=== PATIENT | female | born 1935 | race Caucasian/White ===

== ENCOUNTER 2019-07-06 18:14 | Inpatient (IN) | payer OTHER ==
[~2019-07-06] VITALS: Ht 165.1 cm; Wt 68.3 kg
[~2019-07-06 18:14] MED LIST: ASPI81EC PO; ATEN25; ATEN25 PO; CAPT25; CAPT50 PO; CONEST.625; DIPATR; DIPATR PO; FISH1000 PO; GEMF600 PO; GLUCHON PO; HYDCHL12.5; HYDCHL12.5 PO; LOVA40 PO; OMEGA 3 PO; OMEP20ER PO; ONDA4 PO; OSTEO BIFLEX; RXONDA4ODT MM; VITB100 PO
[2019-07-06 18:45] LABS: BASOPHILS ABSOLUTE AUTO 0.03 K/mm3 (0.00-0.23); BASOPHILS PERCENT AUTO 0 % (0-2); EOSINOPHILS ABSOLUTE AUTO 0.05 K/mm3 (0.00-0.68); EOSINOPHILS PERCENT AUTO 1 % (0-6); Hematocrit 35.8 % (33.0-51.0); Hemoglobin 12.8 g/dL (11.5-16.0); IMMATURE GRAN ABSOLUTE AUTO 0.05 K/mm3 (0.00-0.10); IMMATURE GRAN PERCENT AUTO 1 % (0-1); LYMPHOCYTES ABSOLUTE AUTO 2.33 K/mm3 (0.84-5.20); LYMPHOCYTES PERCENT AUTO 31 % (21-46); MONOCYTES ABSOLUTE AUTO 0.45 K/mm3 (0.16-1.47); MONOCYTES PERCENT AUTO 6 % (4-13); Mean Corpuscular HGB 32.9 pg (26.0-34.0); Mean Corpuscular HGB Conc 35.8 g/dL (31.5-36.5); Mean Corpuscular Volume 92 fL (80-100); Mean Platelet Volume 8.8 fL (9.1-12.4); NEUTROPHILS ABSOLUTE AUTO 4.53 K/mm3 (1.96-9.15); NEUTROPHILS PERCENT AUTO 61 % (41-73); Platelet Count 281 K/mm3 (150-400); RDW Coefficient Variation 11.9 % (11.7-14.2); RDW Standard Deviation 40.4 fL (35.1-46.3); Red Blood Cell Count 3.89 M/mm3 (3.80-5.20); White Blood Cell Count 7.44 K/mm3 (4.00-11.30)
[2019-07-06 19:04] LABS: Alanine Aminotransfer (ALT/SGP 19 U/L (12-78); Albumin, Blood 3.8 g/dL (3.4-5.0); Albumin/Globulin Ratio 1.2 (0.8-1.8); Alk Phos 59 U/L (50-136); Anion Gap 10 mmol/L (6-16); Aspartate Aminotrans (AST/SGOT 17 U/L (12-37); Bilirubin, Total 0.6 mg/dL (0.1-1.0); Blood Urea Nitrogen 15 mg/dL (8-24); Bun/Creatinine Ratio 15.1 (12.0-20.0); CO2, Blood 21 mmol/L (21-32); Calcium, Blood 8.8 mg/dL (8.5-10.1); Chloride, Blood 90 mmol/L (98-108); Creatinine, Blood 0.99 mg/dL (0.40-1.00); Globulin, Blood 3.3 g/dL (2.2-4.0); Glomerular Filtration Rate 57 (60-); Glucose, Blood 111 mg/dL (70-99); Potassium, Blood 3.5 mmol/L (3.5-5.5); Sodium, Blood 121 mmol/L (136-145); Total Protein, Blood 7.1 g/dL (6.4-8.2); Troponin I <0.015 ng/mL (0.000-0.040)
[2019-07-06] MEDS ORDERED: ATEN25 PO (19:58)
[2019-07-06] MEDS ORDERED: IRBE75 PO (19:59)
[2019-07-06] MEDS ORDERED: Aspir 8181 MG PO (19:59)
[2019-07-06] MEDS ORDERED: VITAMIN D31000 UNI1 PO (19:59)
[2019-07-06] MEDS ORDERED: FURO20 PO (19:59)
[2019-07-06] MEDS ORDERED: LOVA40 PO (19:59)
--- NOTE | 2019-07-06 22:22 | NUR ---
ADMISSION NOTE PT ARRIVED TO UNIT VIA STRETCHER, AMBULATES SBA TO BED. PT ACTIVELY VOMITING, LIQUID LIGHT BROWN. PT STATES HAD CHICKEN BROTH EARLIER. ADMINISTERED PRN ZOFRAN. ADMINSITERED 25 MCG FENTANYL FOR NECK PAIN. A&OX4. CURRENTLY RESTING AT THIS TIME, NO VOMITING OF CURRENT. RESP PANEL SENT. GI PANEL PENDING. PLACED IN CONTACT PRECAUTIONS GI SYMPTOMS PRESENT AND PT REPORTS RECENT EXPOSURE TO "FLU-LIKE SYMPTOMS" WITH FAMILY. ASSUMING CARE OF PT.
[2019-07-06 23:10] LABS: Source, Urine Clean Catch
[2019-07-06 23:13] LABS: Bilirubin, Urine Neg (Neg); Blood, Urine Neg (Neg); Glucose Qualitative, Urine Neg (Neg); Ketones, Urine 1+ (Neg); Leukocyte Esterase, Urine 1+ (Neg); Nitrite, Urine Neg (Neg); Protein, Urine Neg (Neg); Specific Gravity, Urine 1.015 (1.003-1.022); Urobilinogen, Urine NORM (Normal)
[2019-07-06 23:18] LABS: Appearance, Urine Clear (Clear); Color, Urine Yellow (P-Yellow)
[2019-07-06 23:19] LABS: Bacteria Rare /hpf; Red Blood Cells, Urine Not Seen /hpf (0-2); Squamous Epithelial Cells Few /hpf (Few)
[2019-07-07 00:35] LABS: Adenovirus Not Detected (NOT DETECT); Bordetella pertussis Not Detected (NOT DETECT); Chlamydophila pneumoniae Not Detected (NOT DETECT); Coronavirus 229E Not Detected (NOT DETECT); Coronavirus HKU1 Not Detected (NOT DETECT); Coronavirus NL63 Not Detected (NOT DETECT); Coronavirus OC43 Not Detected (NOT DETECT); Human Metapneumovirus Not Detected (NOT DETECT); Human Rhinovirus/Enterovirus Not Detected (NOT DETECT); Influenza A Not Detected (NOT DETECT); Influenza A/2009-H1 Not Detected (NOT DETECT); Influenza A/H1 Not Detected (NOT DETECT); Influenza A/H3 Not Detected (NOT DETECT); Influenza B Not Detected (NOT DETECT); Mycoplasma pneumoniae Not Detected (NOT DETECT); Parainfluenza Virus 1 Not Detected (NOT DETECT); Parainfluenza Virus 2 Not Detected (NOT DETECT); Parainfluenza Virus 3 Not Detected (NOT DETECT); Parainfluenza Virus 4 Not Detected (NOT DETECT); Respiratory Syncytial Virus Not Detected (NOT DETECT)
[2019-07-07 02:40] LABS: Hematocrit 33.8 % (33.0-51.0); Mean Corpuscular HGB Conc 35.5 g/dL (31.5-36.5); Mean Corpuscular Volume 93 fL (80-100); Mean Platelet Volume 9.5 fL (9.1-12.4); Platelet Count 177 K/mm3 (150-400); RDW Standard Deviation 41.2 fL (35.1-46.3); Red Blood Cell Count 3.64 M/mm3 (3.80-5.20); White Blood Cell Count 5.95 K/mm3 (4.00-11.30)
[2019-07-07 02:56] LABS: Anion Gap 11 mmol/L (6-16); Blood Urea Nitrogen 12 mg/dL (8-24); Bun/Creatinine Ratio 14.9 (12.0-20.0); CO2, Blood 23 mmol/L (21-32); Calcium, Blood 8.3 mg/dL (8.5-10.1); Chloride, Blood 92 mmol/L (98-108); Creatinine, Blood 0.81 mg/dL (0.40-1.00); Glomerular Filtration Rate >60 (60-); Glucose, Blood 96 mg/dL (70-99); Potassium, Blood 3.2 mmol/L (3.5-5.5); Sodium, Blood 126 mmol/L (136-145)
--- NOTE | 2019-07-07 06:02 | NUR ---
SHIFT SUMMARY PT HAS HAD THREE EPISODES OF EMESIS, CLEAR LIQUID BROWN EACH TIME. RESOLVED BY IV ZOFRAN. PT C/O SIGNIFICANT R SHOULDER PAIN, ATTEMPTED TO RESOLVE PAIN WITH HOT/COLD APPLICATION; NO RELIEF. ADMINSITERED IV FENTANYL TWICE AND PT REPORTS PAIN IS WELL CONTROLLED AT THIS TIME. UNKNOWN CAUSE OF R SHOULDER PAIN, PT DENIES RECENT FALLS OR INJURY. REPORTS PAIN STARTED ROUGHLY 1 WEEK AGO WHEN N/V/D STARTED. PT HAS NOT HAD A BM SINCE ARRIVAL; GI PANEL PENDING; IN CONTACT ISO UNTIL RESULTS ARE KNOWN. RESP PANEL COLLECTED & NEG. URINALYSIS BEING CULTURED. NS RUNNING @ 75 ML/HR X 1.5 BAGS. WILL CONT TO MONITOR AND PROVIDE CARE UNTIL PRESUMED BY ONCOMING RN.
[2019-07-07 10:54] LABS: Alanine Aminotransfer (ALT/SGP 21 U/L (12-78); Albumin, Blood 3.5 g/dL (3.4-5.0); Albumin/Globulin Ratio 1.2 (0.8-1.8); Alk Phos 57 U/L (50-136); Anion Gap 6 mmol/L (6-16); Aspartate Aminotrans (AST/SGOT 18 U/L (12-37); Bilirubin, Total 0.6 mg/dL (0.1-1.0); Blood Urea Nitrogen 9 mg/dL (8-24); Bun/Creatinine Ratio 13.9 (12.0-20.0); CO2, Blood 27 mmol/L (21-32); Calcium, Blood 8.6 mg/dL (8.5-10.1); Chloride, Blood 94 mmol/L (98-108); Creatinine, Blood 0.65 mg/dL (0.40-1.00); Glomerular Filtration Rate >60 (60-); Glucose, Blood 94 mg/dL (70-99); Potassium, Blood 3.6 mmol/L (3.5-5.5); Sodium, Blood 127 mmol/L (136-145); Total Protein, Blood 6.5 g/dL (6.4-8.2)
--- NOTE | 2019-07-07 16:45 | NUR ---
SHIFT SUMMARY PT HAS HAD NAUSEA AND VOMITING THROUGH OUT THE SHIFT MEDICATED X2 FOR NAUSEA, ONE EMESIS OF 200 THIS SHIFT. PT MEDICATED WITH IV PAIN MEDICATION X2 THIS SHIFT. PT IS NPO AT THIS TIME. BED ALARM ON AND INSTRUCTED PT TO CALL AFTER PAIN MEDS GIVEN IF GETTING OUT OF BED. I WILL COUNTINUE TO MONITOR THIS SHIFT AND REPORT TO NOC RN. CALL LIGHT WITH IN REACH.
[2019-07-07 21:13] LABS: Anion Gap 8 mmol/L (6-16); Blood Urea Nitrogen 7 mg/dL (8-24); CO2, Blood 23 mmol/L (21-32); Calcium, Blood 8.8 mg/dL (8.5-10.1); Chloride, Blood 99 mmol/L (98-108); Glomerular Filtration Rate >60 (60-); Glucose, Blood 95 mg/dL (70-99); Potassium, Blood 3.8 mmol/L (3.5-5.5); Sodium, Blood 130 mmol/L (136-145)
--- NOTE | 2019-07-08 18:02 | NUR ---
PT. SITTING ON SIDE OF BED EATING DINNER. PT. HAS NOT HAD ANY NAUSEA, VOMITING, OR DIARRHEA THIS SHIFT. PT. STARTED ON FULL LIQUIDS FOR LUNCH AND ADVANCED TO SOFT FOR DINNER. TOLERATED WELL WITHOUT REPORTING ANY N/V. PT. UP TO SHOWER TODAY. OXYBUTYNIN BROUGHT FROM HOME AND SENT TO PHARMACY FOR RELABELING.
--- NOTE | 2019-07-08 23:15 | NUR ---
PT C/O OF SHOULDER AND NECK PAIN PERSISTING AFTER TYLENOL RECIEVED PRN. MADE AWARE AT 2215 W/FENT 25 MCG IV X1 AND ROXICODONE Q6H PRN RX'D. PT WAS ASLEEP W/X2 ATTEMPTS TO PROVIDE PRN MEDS. WILL ADMINISTER IF PT AWAKES AND REQUESTS FURTHER MEDS.
--- NOTE | 2019-07-09 01:59 | NUR ---
FENTANYL 25MCG IV X1 AND COMPAZINE FOR NAUSEA PROPHYLAXIS WERE RECIEVED PRN PER PT REQUEST FOR POSITIVE RELIEF OF NECK/SHOULDER PAIN. PT NOW ASLEEP.
[2019-07-09 05:21] LABS: Anion Gap 8 mmol/L (6-16); Blood Urea Nitrogen 9 mg/dL (8-24); Bun/Creatinine Ratio 13.2 (12.0-20.0); CO2, Blood 23 mmol/L (21-32); Calcium, Blood 8.8 mg/dL (8.5-10.1); Chloride, Blood 104 mmol/L (98-108); Creatinine, Blood 0.68 mg/dL (0.40-1.00); Glomerular Filtration Rate >60 (60-); Glucose, Blood 92 mg/dL (70-99); Potassium, Blood 3.7 mmol/L (3.5-5.5); Sodium, Blood 135 mmol/L (136-145)
--- NOTE | 2019-07-09 05:54 | NUR ---
SUMMARY: A/OX4, INDEPENDENT IN ROOM AND SPECIFIES NEEDS. SHE'S AWARE OF LIMITATIONS AND CALLS FOR ASSIST PRN. NECK/SHOULDER PAIN WAS UNRELIEVED BY TYLENOL SO FENTANYL 25MCG IV X1 AND PROPHYLACT IV COMPAZINE PRN WERE GIVEN FOR GOOD EFFECT. ROXICODONE PRN WAS ALSO RX'D BY BUT WAS NOT REQUIRED THIS SHIFT. SHE'S TOLERATING DIET/LIQ'S W/O C/O N/V. PT HAS SLEPT MOST OF NOCTE. NO ACUTE CHANGES, VSS/AFEBRILE. LIKELY D/C THIS AM. WCTM AND REPORT TO DAY RN.
[2019-07-09] MEDS ORDERED: ACET325 PO (11:24)
[2019-07-09] MEDS ORDERED: TRAM50 PO (11:25)
[2019-07-09] MEDS ORDERED: OXYB5 PO (11:25)
--- NOTE | 2019-07-09 12:30 | NUR ---
PT. GIVEN DISCHARGE INSTRUCTIONS AND DISCHARGED HOME WITH FAMILY, HOME MEDS RETURNED TO PATIENT.
== END 2019-07-09 12:30 | disposition home or self-care (01) | DRG 392 ==
LOC: ER 18:14 → MEDS 20:14
PROVIDERS: Internal Medicine; Physician Assistant; ADMIT Internal Medicine
DX: K52.9 Noninfective gastroenteritis and colitis, unspecified (principal); E87.1 Hypo-osmolality and hyponatremia; E86.0 Dehydration; I10 Essential (primary) hypertension; K21.9 Gastro-esophageal reflux disease without esophagitis; E78.5 Hyperlipidemia, unspecified; M54.2 Cervicalgia; M19.90 Unspecified osteoarthritis, unspecified site; R11.10 Vomiting, unspecified; Z79.82 Long term (current) use of aspirin; Z79.899 Other long term (current) drug therapy; Z87.891 Personal history of nicotine dependence
CPT/HCPCS: 0099U; 36415; 80048; 80053; 81001; 83690; 84484; 85025; 85027; 87086; 93005; 93010; 96361; 96374; 99285-25; A9270; C9113; J0780; J1650; J2405; J3010; J3480; J7030

== ENCOUNTER 2019-09-09 10:54 | Day surgery (SDC) | payer OTHER ==
[~2019-09-09] VITALS: Ht 165.1 cm; Wt 69.5 kg
[~2019-09-09 10:54] MED LIST changes: +ACET325 PO; +Aspir 8181 MG PO; +FURO20 PO; +IRBE75 PO; +OXYB5 PO; +TRAM50 PO; +VITAMIN D31000 UNI1 PO
--- NOTE | 2019-09-09 14:30 | NUR ---
09/09/19 1430 Claribel Mobley LATE ENTRY----DUE TO ABNORMAL 3LEAD DR VILLARREAL WAS CONSULTED. SHE SPOKE WITH DR MILES AND IT WAS DECIDED TO PROCEED CAUTIOUSLY WITH COLONOSCOPY AND RESCHEDULE EGD FOR ANOTHER TIME DUE TO HEART IRREGULARITY. PATIENT AND FAMILY ALL AWARE AND QUESTIONS ANSWERED AND IN AGREEMENT.
--- NOTE | 2019-09-09 14:36 | NUR ---
09/09/19 1436 Claribel Mobley LATE ENTRY---DISCHARGE INSTRUCTIONS DISCUSSED WITH PATIENT AND DAUGHTER IN LAW. ALL QUESTIONS ANSWERED. I DID INSTRUCT THEM BOTH THAT IF PATIENT HAD ANY PROBLEMS WITH SOB, CHEST PAIN, FAINTING OR NEAR FAINTING THAT THEY SHOULD CALL 911. I ADVISED PATIENT AND FAMILY THAT I WAS GOING TO BE SENDING COPIES OF ALL THE NOTES REGARDING HER HEART ISSUES TODAY TO HER PCP AND SHE SHOULD SCHEDULE APPOINTMENT TO FOLLOW UP [place]. PATIENT AND DAUGHTER IN LAW BOTH VERBALIZED UNDERSTANDING
== END 2019-09-09 13:55 | disposition home or self-care (01) ==
LOC: ORSCSDS 10:54
PROVIDERS: Internal Medicine Gastroenterology
PROC: 0DBE8ZX Excision of Large Intestine, Via Natural or Artificial Opening Endoscopic, Diagnostic (ICD-10-PCS; principal; 2019-09-09 12:30)
PROC: 0DBK8ZX Excision of Ascending Colon, Via Natural or Artificial Opening Endoscopic, Diagnostic (ICD-10-PCS; principal; 2019-09-09 12:30)
PROC: 0DBH8ZX Excision of Cecum, Via Natural or Artificial Opening Endoscopic, Diagnostic (ICD-10-PCS; principal; 2019-09-09 12:30)
PROC: 0DBL8ZX Excision of Transverse Colon, Via Natural or Artificial Opening Endoscopic, Diagnostic (ICD-10-PCS; principal; 2019-09-09 12:30)
PROC: 0DBM8ZX Excision of Descending Colon, Via Natural or Artificial Opening Endoscopic, Diagnostic (ICD-10-PCS; principal; 2019-09-09 12:30)
DX: Z12.11 Encounter for screening for malignant neoplasm of colon (principal); Z86.010 Personal history of colon polyps; K57.30 Diverticulosis of large intestine without perforation or abscess without bleeding; R11.0 Nausea; Z80.0 Family history of malignant neoplasm of digestive organs; D12.4 Benign neoplasm of descending colon; D12.2 Benign neoplasm of ascending colon; D12.0 Benign neoplasm of cecum; D12.3 Benign neoplasm of transverse colon; I10 Essential (primary) hypertension; R93.89 Abnormal findings on diagnostic imaging of other specified body structures; Z79.82 Long term (current) use of aspirin; Z79.899 Other long term (current) drug therapy
CPT/HCPCS: 88305; J0461; J2250; J2704; J7120

== ENCOUNTER 2019-12-03 17:53 | Emergency (ER) | payer MEDICARE ==
[~2019-12-03] VITALS: Ht 165.1 cm; Wt 70.3 kg
== END 2019-12-03 19:15 | disposition home or self-care (01) ==
LOC: ER 17:53
DX: S01.01XA Laceration without foreign body of scalp, initial encounter (principal); I10 Essential (primary) hypertension; E78.5 Hyperlipidemia, unspecified; K21.9 Gastro-esophageal reflux disease without esophagitis; Z79.899 Other long term (current) drug therapy; Z79.82 Long term (current) use of aspirin; Z87.891 Personal history of nicotine dependence; W10.9XXA Fall (on) (from) unspecified stairs and steps, initial encounter
CPT/HCPCS: 12002; 70450; 72125; 99283-25

== ENCOUNTER → 2020-02-13 | Outpatient (CLI) | payer MEDICARE, OTHER ==
[2020-02-13 14:03] LABS: Adenovirus F 40/41 Not Detected (NOT DETECT); Astrovirus Not Detected (NOT DETECT); Campylobacter Sp Not Detected (NOT DETECT); Cryptosporidium Not Detected (NOT DETECT); Cyclospora Cayetanensis Not Detected (NOT DETECT); E. Coli O157 Not Detected (NOT DETECT); Entamoeba Histolytica Not Detected (NOT DETECT); Enteroaggregative E. coli-EAEC Not Detected (NOT DETECT); Enteropathogenic E. coli-EPEC Not Detected (NOT DETECT); Enterotoxigenic E. coli-ETEC Not Detected (NOT DETECT); Giardia Lamblia Not Detected (NOT DETECT); Norovirus GI/GII Not Detected (NOT DETECT); Plesiomonas Shigelloides Not Detected (NOT DETECT); Rotavirus A Not Detected (NOT DETECT); Salmonella Sp Not Detected (NOT DETECT); Sapovirus Not Detected (NOT DETECT); Shiga Toxin-prod E. coli-STEC Not Detected (NOT DETECT); Shigella/Enteroin E. coli-EIEC Not Detected (NOT DETECT); Vibrio Cholerae Not Detected (NOT DETECT); Vibrio Sp Not Detected (NOT DETECT); Yersinia Enterocolitica Not Detected (NOT DETECT)
== END | disposition home or self-care (01) ==
LOC: LAB 07:30 → LAB SHORT 07:30 → LAB FUT 02-10 14:50
PROVIDERS: Internal Medicine Gastroenterology
DX: R19.7 Diarrhea, unspecified (principal)
CPT/HCPCS: 0097U

== ENCOUNTER → 2020-10-02 | Outpatient (CLI) | payer MEDICARE, OTHER ==
[2020-10-02 14:17] LABS: Calcium, Urine <5.0 mg/dL (< 17.5); Calcium, Urine Calculation Unable to Calculate mg/24hrs (42.0-353.0)
[2020-10-02 14:19] LABS: Creatinine Urine 39.4 mg/dL (27.00-270.00)
== END ==
LOC: LAB SHORT 06:00 → LAB 06:00 → EDSTATUS 09-30 10:05 → LAB FUT 09-30 10:05
PROVIDERS: Family Medicine
DX: R19.7 Diarrhea, unspecified (principal); E78.1 Pure hyperglyceridemia; Z88.8 Allergy status to other drugs, medicaments and biological substances
CPT/HCPCS: 81050; 82340; 82570

== ENCOUNTER → 2020-11-05 | Outpatient (CLI) | payer MEDICARE | END | disposition home or self-care (01) | LOC: LAB SHORT 09:49 → LAB 09:49 | DX: J02.9 Acute pharyngitis, unspecified (principal) | CPT/HCPCS: 87081 ==

== ENCOUNTER 2020-12-18 12:39 | Emergency (ER) | payer MEDICARE ==
[~2020-12-18] VITALS: Ht 165.1 cm; Wt 72.6 kg
[2020-12-18 13:26] LABS: BASOPHILS ABSOLUTE AUTO 0.06 K/mm3 (0.00-0.23); BASOPHILS PERCENT AUTO 1 % (0-2); EOSINOPHILS ABSOLUTE AUTO 0.14 K/mm3 (0.00-0.68); EOSINOPHILS PERCENT AUTO 2 % (0-6); Hematocrit 33.5 % (33.0-51.0); Hemoglobin 11.2 g/dL (11.5-16.0); IMMATURE GRAN ABSOLUTE AUTO 0.02 K/mm3 (0.00-0.10); IMMATURE GRAN PERCENT AUTO 0 % (0-1); LYMPHOCYTES ABSOLUTE AUTO 1.66 K/mm3 (0.84-5.20); LYMPHOCYTES PERCENT AUTO 26 % (21-46); MONOCYTES ABSOLUTE AUTO 0.33 K/mm3 (0.16-1.47); MONOCYTES PERCENT AUTO 5 % (4-13); Mean Corpuscular HGB 30.3 pg (26.0-34.0); Mean Corpuscular HGB Conc 33.4 g/dL (31.5-36.5); Mean Corpuscular Volume 91 fL (80-100); Mean Platelet Volume 9.1 fL (9.1-12.4); NEUTROPHILS ABSOLUTE AUTO 4.26 K/mm3 (1.96-9.15); NEUTROPHILS PERCENT AUTO 66 % (41-73); Platelet Count 259 K/mm3 (150-400); RDW Coefficient Variation 13.1 % (11.7-14.2); RDW Standard Deviation 43.1 fL (35.1-46.3); White Blood Cell Count 6.47 K/mm3 (4.00-11.30)
[2020-12-18 13:52] LABS: Alanine Aminotransfer (ALT/SGP 13 U/L (12-78); Albumin, Blood 3.6 g/dL (3.4-5.0); Alk Phos 51 U/L (50-136); Anion Gap 7 mmol/L (6-16); Aspartate Aminotrans (AST/SGOT 11 U/L (12-37); Bilirubin, Total 0.3 mg/dL (0.1-1.0); Blood Urea Nitrogen 17 mg/dL (8-24); Bun/Creatinine Ratio 19.7 (12.0-20.0); CO2, Blood 22 mmol/L (21-32); Calcium, Blood 8.2 mg/dL (8.5-10.1); Chloride, Blood 104 mmol/L (98-108); Creatinine, Blood 0.86 mg/dL (0.40-1.00); Globulin, Blood 3.5 g/dL (2.2-4.0); Glomerular Filtration Rate >60 (60-); Glucose, Blood 99 mg/dL (70-99); Potassium, Blood 4.5 mmol/L (3.5-5.5); Sodium, Blood 133 mmol/L (136-145); Total Protein, Blood 7.1 g/dL (6.4-8.2); Troponin I <0.015 ng/mL (0.000-0.040)
== END 2020-12-18 14:13 | disposition home or self-care (01) ==
LOC: ER 12:39
PROVIDERS: Physician Assistant
DX: R07.89 Other chest pain (principal); I10 Essential (primary) hypertension; K21.9 Gastro-esophageal reflux disease without esophagitis; E78.5 Hyperlipidemia, unspecified; Z88.8 Allergy status to other drugs, medicaments and biological substances; Z79.82 Long term (current) use of aspirin; Z79.899 Other long term (current) drug therapy
CPT/HCPCS: 36415; 71046; 80053; 84484; 85025; 93005; 93010; 99285-25

== ENCOUNTER → 2021-01-22 | Outpatient (CLI) | payer MEDICARE | LOC: LAB 17:57 → LAB SHORT 17:57 | DX: N39.0 Urinary tract infection, site not specified (principal) | CPT/HCPCS: 87077; 87086; 87186 ==

== ENCOUNTER 2021-02-02 22:15 | Emergency (ER) | payer MEDICARE ==
[~2021-02-02] VITALS: Ht 165.1 cm; Wt 72.1 kg
[2021-02-02 22:49] LABS: BASOPHILS ABSOLUTE AUTO 0.03 K/mm3 (0.00-0.23); BASOPHILS PERCENT AUTO 0 % (0-2); EOSINOPHILS ABSOLUTE AUTO 0.14 K/mm3 (0.00-0.68); EOSINOPHILS PERCENT AUTO 1 % (0-6); Hematocrit 37.8 % (33.0-51.0); Hemoglobin 12.1 g/dL (11.5-16.0); IMMATURE GRAN ABSOLUTE AUTO 0.07 K/mm3 (0.00-0.10); IMMATURE GRAN PERCENT AUTO 1 % (0-1); LYMPHOCYTES ABSOLUTE AUTO 1.68 K/mm3 (0.84-5.20); LYMPHOCYTES PERCENT AUTO 12 % (21-46); MONOCYTES ABSOLUTE AUTO 0.68 K/mm3 (0.16-1.47); MONOCYTES PERCENT AUTO 5 % (4-13); Mean Corpuscular HGB 29.4 pg (26.0-34.0); Mean Corpuscular Volume 92 fL (80-100); NEUTROPHILS ABSOLUTE AUTO 11.06 K/mm3 (1.96-9.15); NEUTROPHILS PERCENT AUTO 81 % (41-73); Platelet Count 286 K/mm3 (150-400); RDW Coefficient Variation 14.6 % (11.7-14.2); RDW Standard Deviation 48.8 fL (35.1-46.3); Red Blood Cell Count 4.12 M/mm3 (3.80-5.20); White Blood Cell Count 13.66 K/mm3 (4.00-11.30)
[2021-02-02 23:08] LABS: Albumin, Blood 3.5 g/dL (3.4-5.0); Albumin/Globulin Ratio 1.1 (0.8-1.8); Bilirubin, Total 0.4 mg/dL (0.1-1.0); Bun/Creatinine Ratio 21.8 (12.0-20.0); Calcium, Blood 8.2 mg/dL (8.5-10.1); Creatinine, Blood 1.01 mg/dL (0.40-1.00); Globulin, Blood 3.3 g/dL (2.2-4.0); Potassium, Blood 3.8 mmol/L (3.5-5.5); Total Protein, Blood 6.8 g/dL (6.4-8.2)
[2021-02-03 01:40] LABS: Source, Urine Voided
[2021-02-03 01:42] LABS: Appearance, Urine Clear (Clear); Bilirubin, Urine Neg (Neg); Blood, Urine Neg (Neg); Color, Urine Yellow (P-Yellow); Glucose Qualitative, Urine Neg (Neg); Ketones, Urine Neg (Neg); Leukocyte Esterase, Urine 2+ (Neg); Nitrite, Urine Neg (Neg); Protein, Urine 1+ (Neg); Urobilinogen, Urine NORM (Normal)
[2021-02-03 01:53] LABS: Red Blood Cells, Urine 0-2 /hpf (0-2)
[2021-02-03 01:54] LABS: Bacteria Mod /hpf; Hyaline Casts 0-2 /lpf (0-2); Squamous Epithelial Cells Few /hpf (Few)
[2021-02-03 02:32] LABS: Troponin I <0.015 ng/mL (0.000-0.040)
== END 2021-02-03 06:27 | disposition home or self-care (01) ==
LOC: ER 22:15
PROVIDERS: Emergency Medicine
DX: R10.13 Epigastric pain (principal); I10 Essential (primary) hypertension; Z88.8 Allergy status to other drugs, medicaments and biological substances; Z79.899 Other long term (current) drug therapy; Z79.82 Long term (current) use of aspirin; Z87.891 Personal history of nicotine dependence
CPT/HCPCS: 36415; 80053; 81001; 83690; 84484; 85025; 87086; 93005; 93010; 96374; 99284-25; A9270

== ENCOUNTER → 2021-05-18 | Outpatient (CLI) | payer MEDICARE | END | disposition home or self-care (01) | LOC: LAB 13:30 → LAB SHORT 13:30 | DX: R30.9 Painful micturition, unspecified (principal) | CPT/HCPCS: 87077; 87086; 87186 ==

== ENCOUNTER 2021-07-14 11:31 | Day surgery (SDC) | payer MEDICARE ==
[~2021-07-14] VITALS: Ht 165.1 cm; Wt 72.8 kg
[~2021-07-14 11:31] MED LIST changes: +BENZ100A PO; +Flonase 0.05% N16 GM; +Flovent 44 mc10.6 GM INH; +MAGNESIUM OXID500 MG PO
== END 2021-07-14 14:25 | disposition home or self-care (01) ==
LOC: ORSCSDS 11:31
PROVIDERS: Internal Medicine Gastroenterology
PROC: 0DB68ZX Excision of Stomach, Via Natural or Artificial Opening Endoscopic, Diagnostic (ICD-10-PCS; principal; 2021-07-14 13:30)
DX: R10.11 Right upper quadrant pain (principal); R10.9 Unspecified abdominal pain; K29.70 Gastritis, unspecified, without bleeding; I10 Essential (primary) hypertension; K21.9 Gastro-esophageal reflux disease without esophagitis; Z79.899 Other long term (current) drug therapy
CPT/HCPCS: 88305; 88341; 88342; J2704; J7120

== ENCOUNTER → 2021-07-15 | Outpatient (CLI) | payer MEDICARE | END | disposition home or self-care (01) | LOC: LAB SHORT 10:00 → LAB 10:00 | DX: R30.9 Painful micturition, unspecified (principal) | CPT/HCPCS: 87077; 87086; 87186 ==

== ENCOUNTER → 2021-08-19 | Outpatient (CLI) | payer MEDICARE | END | disposition home or self-care (01) | LOC: LAB SHORT 17:55 | DX: R30.9 Painful micturition, unspecified (principal) | CPT/HCPCS: 87077; 87086; 87186 ==

== ENCOUNTER 2021-08-26 18:22 | Observation (INO) | payer MEDICARE ==
[~2021-08-26] VITALS: Ht 165.1 cm; Wt 71.2 kg
[2021-08-26 19:04] LABS: BASOPHILS ABSOLUTE AUTO 0.05 K/mm3 (0.00-0.23); BASOPHILS PERCENT AUTO 0 % (0-2); EOSINOPHILS ABSOLUTE AUTO 0.04 K/mm3 (0.00-0.68); EOSINOPHILS PERCENT AUTO 0 % (0-6); Hematocrit 34.5 % (33.0-51.0); IMMATURE GRAN ABSOLUTE AUTO 0.23 K/mm3 (0.00-0.10); IMMATURE GRAN PERCENT AUTO 1 % (0-1); LYMPHOCYTES PERCENT AUTO 8 % (21-46); MONOCYTES ABSOLUTE AUTO 0.71 K/mm3 (0.16-1.47); MONOCYTES PERCENT AUTO 3 % (4-13); Mean Corpuscular HGB 31.2 pg (26.0-34.0); Mean Corpuscular HGB Conc 34.8 g/dL (31.5-36.5); Mean Corpuscular Volume 90 fL (80-100); Mean Platelet Volume 8.8 fL (9.1-12.4); NEUTROPHILS PERCENT AUTO 87 % (41-73); Platelet Count 330 K/mm3 (150-400); RDW Coefficient Variation 12.9 % (11.7-14.2); RDW Standard Deviation 41.9 fL (35.1-46.3); Red Blood Cell Count 3.85 M/mm3 (3.80-5.20); White Blood Cell Count 21.93 K/mm3 (4.00-11.30)
[2021-08-26 19:22] LABS: Albumin, Blood 3.9 g/dL (3.4-5.0); Albumin/Globulin Ratio 1.1 (0.8-1.8); Bun/Creatinine Ratio 16.8 (12.0-20.0); Calcium, Blood 8.9 mg/dL (8.5-10.1); Creatinine, Blood 1.01 mg/dL (0.40-1.00); Globulin, Blood 3.5 g/dL (2.2-4.0); Potassium, Blood 4.2 mmol/L (3.5-5.5); Total Protein, Blood 7.4 g/dL (6.4-8.2)
[2021-08-27 04:56] LABS: BASOPHILS ABSOLUTE AUTO 0.04 K/mm3 (0.00-0.23); BASOPHILS PERCENT AUTO 0 % (0-2); EOSINOPHILS ABSOLUTE AUTO 0.08 K/mm3 (0.00-0.68); EOSINOPHILS PERCENT AUTO 0 % (0-6); Hematocrit 33.5 % (33.0-51.0); Hemoglobin 11.3 g/dL (11.5-16.0); IMMATURE GRAN ABSOLUTE AUTO 0.15 K/mm3 (0.00-0.10); IMMATURE GRAN PERCENT AUTO 1 % (0-1); LYMPHOCYTES PERCENT AUTO 8 % (21-46); MONOCYTES ABSOLUTE AUTO 0.45 K/mm3 (0.16-1.47); MONOCYTES PERCENT AUTO 2 % (4-13); Mean Corpuscular HGB 31.2 pg (26.0-34.0); Mean Corpuscular HGB Conc 33.7 g/dL (31.5-36.5); Mean Corpuscular Volume 93 fL (80-100); Mean Platelet Volume 9.2 fL (9.1-12.4); NEUTROPHILS ABSOLUTE AUTO 16.42 K/mm3 (1.96-9.15); NEUTROPHILS PERCENT AUTO 88 % (41-73); Platelet Count 272 K/mm3 (150-400); RDW Coefficient Variation 12.8 % (11.7-14.2); RDW Standard Deviation 44.2 fL (35.1-46.3); Red Blood Cell Count 3.62 M/mm3 (3.80-5.20); White Blood Cell Count 18.64 K/mm3 (4.00-11.30)
--- NOTE | 2021-08-27 05:04 | NUR ---
Received patient AAOX3 with complaint of abdominal pain and nausea. Patient recieved pain medication in the ER with no releif. She was medicated after admition accordingly with eMAR. Patient is now sleeping. She is breathing at room air, unlabored. Ambulate with no assisting device. Vital stable, we will continue to monitor patient for any acute changes.
[2021-08-27 05:29] LABS: Anion Gap 10 mmol/L (6-16); Blood Urea Nitrogen 14 mg/dL (8-24); Bun/Creatinine Ratio 17.7 (12.0-20.0); CO2, Blood 20 mmol/L (21-32); Calcium, Blood 8.2 mg/dL (8.5-10.1); Chloride, Blood 97 mmol/L (98-108); Creatinine, Blood 0.79 mg/dL (0.40-1.00); Glomerular Filtration Rate >60 (60-); Glucose, Blood 112 mg/dL (70-99); Potassium, Blood 4.4 mmol/L (3.5-5.5); Sodium, Blood 127 mmol/L (136-145)
[2021-08-27] MEDS ORDERED: ONDA4 PO (13:02)
--- NOTE | 2021-08-27 14:26 | NUR ---
SUMMARY/DISCHARGE PT DISCHARGED TO HOME, PT VERBALIZED UNDERSTANDING OF DISCHARGE INSTRUCTIONS REGARDING MEDS AND FOLLOW UP, PT TAKEN OUT VIA WHEELCHAIR
== END 2021-08-27 13:52 | disposition home or self-care (01) ==
LOC: ER 18:22 → MEDS 18:23
PROVIDERS: Family Medicine; Physician Assistant; ADMIT Internal Medicine
DX: R11.2 Nausea with vomiting, unspecified (principal); N39.0 Urinary tract infection, site not specified; B96.5 Pseudomonas (aeruginosa) (mallei) (pseudomallei) as the cause of diseases classified elsewhere; K29.70 Gastritis, unspecified, without bleeding; I12.9 Hypertensive chronic kidney disease with stage 1 through stage 4 chronic kidney disease, or unspecified chronic kidney disease; N18.30 Chronic kidney disease, stage 3 unspecified; E87.1 Hypo-osmolality and hyponatremia; E78.5 Hyperlipidemia, unspecified; Z87.891 Personal history of nicotine dependence
CPT/HCPCS: 36415; 80048; 80053; 83690; 85025; 96361; 96374; 96375; 99284-25; A9270; J0744; J1650; J2405; J2550; J7030; J7050

== ENCOUNTER → 2021-12-17 | Outpatient (CLI) | payer MEDICARE | END | disposition home or self-care (01) | LOC: LAB SHORT 12:00 | DX: R30.9 Painful micturition, unspecified (principal) | CPT/HCPCS: 87077; 87086; 87186 ==

== ENCOUNTER → 2022-03-10 | Outpatient (CLI) | payer MEDICARE | END | disposition home or self-care (01) | LOC: LAB 13:27 → LAB SHORT 13:27 | DX: R82.998 Other abnormal findings in urine (principal) | CPT/HCPCS: 87077; 87086; 87186 ==

== ENCOUNTER → 2022-05-19 | Outpatient (CLI) | payer MEDICARE ==
[~2022-05-19] MED LIST changes: +ONDA4ODT MM
== END ==
LOC: LAB 10:35 → LAB SHORT 10:35
DX: R30.9 Painful micturition, unspecified (principal)
CPT/HCPCS: 87077; 87086; 87186

== ENCOUNTER 2022-05-21 05:39 | Emergency (ER) | payer MEDICARE ==
[~2022-05-21] VITALS: Ht 165.1 cm; Wt 72.6 kg
[~2022-05-21 05:39] MED LIST changes: -ONDA4ODT MM
[2022-05-21 06:31] LABS: BASOPHILS ABSOLUTE AUTO 0.04 K/mm3 (0.00-0.23); BASOPHILS PERCENT AUTO 1 % (0-2); EOSINOPHILS ABSOLUTE AUTO 0.08 K/mm3 (0.00-0.68); EOSINOPHILS PERCENT AUTO 1 % (0-6); Hematocrit 32.9 % (33.0-51.0); Hemoglobin 11.7 g/dL (11.5-16.0); IMMATURE GRAN ABSOLUTE AUTO 0.03 K/mm3 (0.00-0.10); IMMATURE GRAN PERCENT AUTO 0 % (0-1); LYMPHOCYTES ABSOLUTE AUTO 1.58 K/mm3 (0.84-5.20); LYMPHOCYTES PERCENT AUTO 20 % (21-46); MONOCYTES ABSOLUTE AUTO 0.45 K/mm3 (0.16-1.47); MONOCYTES PERCENT AUTO 6 % (4-13); Mean Corpuscular HGB 31.5 pg (26.0-34.0); Mean Corpuscular HGB Conc 35.6 g/dL (31.5-36.5); Mean Corpuscular Volume 89 fL (80-100); Mean Platelet Volume 9.4 fL (9.1-12.4); NEUTROPHILS PERCENT AUTO 72 % (41-73); Platelet Count 222 K/mm3 (150-400); RDW Coefficient Variation 12.5 % (11.7-14.2); RDW Standard Deviation 40.8 fL (35.1-46.3); Red Blood Cell Count 3.71 M/mm3 (3.80-5.20); White Blood Cell Count 7.88 K/mm3 (4.00-11.30)
[2022-05-21 06:38] LABS: Albumin, Blood 3.5 g/dL (3.4-5.0); Albumin/Globulin Ratio 1.1 (0.8-1.8); Bilirubin, Total 0.5 mg/dL (0.1-1.0); Bun/Creatinine Ratio 16.2 (12.0-20.0); Calcium, Blood 8.2 mg/dL (8.5-10.1); Creatinine, Blood 0.8 mg/dL (0.40-1.00); Globulin, Blood 3.2 g/dL (2.2-4.0); Magnesium, Blood 1.2 mg/dL (1.6-2.4); Potassium, Blood 3.4 mmol/L (3.5-5.5); Total Protein, Blood 6.7 g/dL (6.4-8.2)
[2022-05-21 09:02] LABS: Source, Urine Clean Catch
[2022-05-21 09:06] LABS: Appearance, Urine Clear (Clear); Bilirubin, Urine Neg (Neg); Blood, Urine 5+ (Neg); Color, Urine Amber (P-Yellow); Glucose Qualitative, Urine Neg (Neg); Ketones, Urine Neg (Neg); Leukocyte Esterase, Urine 1+ (Neg); Nitrite, Urine Pos (Neg); Protein, Urine 4+ (Neg); Urobilinogen, Urine NORM (Normal)
[2022-05-21 09:42] LABS: White Blood Cells, Urine 0-2 /hpf (0-5)
[2022-05-21 09:43] LABS: Bacteria Not Seen /hpf; Red Blood Cells, Urine TNTC /hpf (0-2); Squamous Epithelial Cells Few /hpf (Few); Transitional Epithelial Cells Few /hpf (0-Rare)
[2022-05-21] MEDS ORDERED: ONDA4ODT MM (10:43)
== END 2022-05-21 13:20 | disposition home or self-care (01) ==
LOC: ER 05:39
PROVIDERS: Student in an Organized Health Care Education/Training Program
DX: R33.9 Retention of urine, unspecified (principal); E83.42 Hypomagnesemia; E87.6 Hypokalemia; E87.1 Hypo-osmolality and hyponatremia; N32.9 Bladder disorder, unspecified; R91.8 Other nonspecific abnormal finding of lung field; I10 Essential (primary) hypertension; K21.9 Gastro-esophageal reflux disease without esophagitis; E78.5 Hyperlipidemia, unspecified; Z88.8 Allergy status to other drugs, medicaments and biological substances; Z79.899 Other long term (current) drug therapy
CPT/HCPCS: 36415; 51798; 74177; 80053; 81001; 83690; 83735; 85025; 87086; A9270; J1885; J2405; J2765; J3475; J7030; Q9967

== ENCOUNTER → 2022-08-18 | Outpatient (CLI) | payer MEDICARE ==
[~2022-08-18] MED LIST changes: +ONDA4ODT MM; +SULTRISS PO
== END | disposition home or self-care (01) ==
LOC: LAB 12:52 → LAB SHORT 12:52
DX: R30.9 Painful micturition, unspecified (principal)
CPT/HCPCS: 87077; 87086; 87186

== ENCOUNTER 2022-08-22 10:51 | Emergency (ER) | payer MEDICARE ==
[~2022-08-22] VITALS: Ht 165.1 cm; Wt 72.6 kg
[~2022-08-22 10:51] MED LIST changes: -SULTRISS PO
[2022-08-22 11:46] LABS: Albumin, Blood 3.7 g/dL (3.4-5.0); Albumin/Globulin Ratio 1.2 (0.8-1.8); Bilirubin, Total 0.5 mg/dL (0.1-1.0); Bun/Creatinine Ratio 14.4 (12.0-20.0); Calcium, Blood 8.5 mg/dL (8.5-10.1); Creatinine, Blood 0.69 mg/dL (0.40-1.00); Potassium, Blood 4.1 mmol/L (3.5-5.5); Total Protein, Blood 6.7 g/dL (6.4-8.2)
[2022-08-22 11:52] LABS: BASOPHILS ABSOLUTE AUTO 0.06 K/mm3 (0.00-0.23); BASOPHILS PERCENT AUTO 1 % (0-2); EOSINOPHILS ABSOLUTE AUTO 0.15 K/mm3 (0.00-0.68); EOSINOPHILS PERCENT AUTO 3 % (0-6); Hematocrit 33.5 % (33.0-51.0); Hemoglobin 11.9 g/dL (11.5-16.0); IMMATURE GRAN ABSOLUTE AUTO 0.07 K/mm3 (0.00-0.10); IMMATURE GRAN PERCENT AUTO 1 % (0-1); LYMPHOCYTES PERCENT AUTO 28 % (21-46); MONOCYTES ABSOLUTE AUTO 0.35 K/mm3 (0.16-1.47); MONOCYTES PERCENT AUTO 6 % (4-13); Mean Corpuscular HGB 31.2 pg (26.0-34.0); Mean Corpuscular HGB Conc 35.5 g/dL (31.5-36.5); Mean Corpuscular Volume 88 fL (80-100); NEUTROPHILS ABSOLUTE AUTO 3.31 K/mm3 (1.96-9.15); NEUTROPHILS PERCENT AUTO 61 % (41-73); NRBC ABSOLUTE 0.02 K/mm3 (0.00-0.02); NRBC Auto 0.4 /100 WBC (0.0-0.2); RDW Coefficient Variation 12.5 % (11.7-14.2); RDW Standard Deviation 39.8 fL (35.1-46.3); Red Blood Cell Count 3.82 M/mm3 (3.80-5.20); White Blood Cell Count 5.44 K/mm3 (4.00-11.30)
[2022-08-22 11:53] LABS: Mean Platelet Volume 9.6 fL (9.1-12.4); Platelet Count 241 K/mm3 (150-400)
[2022-08-22] MEDS ORDERED: SULTRISS PO (16:09)
== END 2022-08-22 16:15 | disposition home or self-care (01) ==
LOC: ER 10:51
PROVIDERS: Physician Assistant
DX: N12 Tubulo-interstitial nephritis, not specified as acute or chronic (principal); I10 Essential (primary) hypertension; Z87.891 Personal history of nicotine dependence; Z79.899 Other long term (current) drug therapy
CPT/HCPCS: 36415; 80053; 85025; A9270

== ENCOUNTER 2022-08-27 18:32 | Inpatient (IN) | payer MEDICARE ==
[~2022-08-27] VITALS: Ht 165.1 cm; Wt 75.4 kg
[~2022-08-27 18:32] MED LIST changes: +SULTRISS PO
[2022-08-27 19:41] LABS: BASOPHILS ABSOLUTE AUTO 0.03 K/mm3 (0.00-0.23); BASOPHILS PERCENT AUTO 1 % (0-2); EOSINOPHILS ABSOLUTE AUTO 0.09 K/mm3 (0.00-0.68); EOSINOPHILS PERCENT AUTO 2 % (0-6); Hematocrit 31.8 % (33.0-51.0); Hemoglobin 11.1 g/dL (11.5-16.0); IMMATURE GRAN ABSOLUTE AUTO 0.02 K/mm3 (0.00-0.10); IMMATURE GRAN PERCENT AUTO 0 % (0-1); LYMPHOCYTES ABSOLUTE AUTO 1.42 K/mm3 (0.84-5.20); LYMPHOCYTES PERCENT AUTO 29 % (21-46); MONOCYTES PERCENT AUTO 10 % (4-13); Mean Corpuscular HGB 30.9 pg (26.0-34.0); Mean Corpuscular HGB Conc 34.9 g/dL (31.5-36.5); Mean Corpuscular Volume 89 fL (80-100); Mean Platelet Volume 9.3 fL (9.1-12.4); NEUTROPHILS ABSOLUTE AUTO 2.81 K/mm3 (1.96-9.15); NEUTROPHILS PERCENT AUTO 58 % (41-73); Platelet Count 239 K/mm3 (150-400); RDW Coefficient Variation 12.4 % (11.7-14.2); RDW Standard Deviation 40.1 fL (35.1-46.3); Red Blood Cell Count 3.59 M/mm3 (3.80-5.20); White Blood Cell Count 4.87 K/mm3 (4.00-11.30)
[2022-08-27 20:05] LABS: Albumin, Blood 3.7 g/dL (3.4-5.0); Albumin/Globulin Ratio 1.3 (0.8-1.8); Bilirubin, Total 0.4 mg/dL (0.1-1.0); Bun/Creatinine Ratio 14.2 (12.0-20.0); Creatinine, Blood 1.34 mg/dL (0.40-1.00); Globulin, Blood 2.8 g/dL (2.2-4.0); Potassium, Blood 4.6 mmol/L (3.5-5.5); Total Protein, Blood 6.5 g/dL (6.4-8.2)
[2022-08-27 20:27] LABS: Source, Urine Clean Catch
[2022-08-27 20:31] LABS: Bilirubin, Urine Neg (Neg); Blood, Urine Neg (Neg); Glucose Qualitative, Urine Neg (Neg); Ketones, Urine Neg (Neg); Leukocyte Esterase, Urine 1+ (Neg); Nitrite, Urine Neg (Neg); Protein, Urine Neg (Neg); Urobilinogen, Urine NORM (Normal); pH, Urine 6.5 (5.0-8.0)
[2022-08-27 20:32] LABS: Appearance, Urine Clear (Clear); Color, Urine Yellow (P-Yellow)
[2022-08-27 20:41] LABS: Bacteria Rare /hpf; Red Blood Cells, Urine Not Seen /hpf (0-2); Squamous Epithelial Cells Rare /hpf (Few); White Blood Cells, Urine 0-2 /hpf (0-5)
[2022-08-28 05:21] LABS: Bun/Creatinine Ratio 13.7 (12.0-20.0); Creatinine, Blood 1.02 mg/dL (0.40-1.00); Potassium, Blood 4.2 mmol/L (3.5-5.5)
--- NOTE | 2022-08-28 06:35 | NUR ---
ADMITTED FOR HYPONATREMIA AT APPROX 2145. A/OX4; CALM AND COOPERATIVE. [place]; HEARING AIDS AT BEDSIDE. IND WITH CANE AT BASELINE; SBA FOR SAFETY OVERNIGHT; IVF INFUSING PER ORDERS. C/O OSTEOARTHRITIS PAIN; PRN ANALGESIC ORDERED AND GIVEN; TEARFUL AT REASSESSMENT C/O UNRELIEVED NECK PAIN. DECLINED ICE /HEAT THERAPY. NECK/ SHOULDER MASSAGE PROVIDED; HELPFUL PER PATIENT. C/O FEELING NAUSEATED; PRN ZOFRAN SOMEWHAT EFFECTIVE PER PATIENT. PRN PHENERGAN ORDER OBTAINED AND GIVEN AT END OF SHIFT. NON-WATER PO FLUID OPTIONS ENCOURAGED AND SALTINE CRACKERS PROVIDED. SLEEP PROMOTED. CALL LIGHT IN REACH; ENCOURAGED TO MAKE NEEDS KNOWN. BED ALARM SET
[2022-08-28 12:38] LABS: Bun/Creatinine Ratio 12.6 (12.0-20.0); Calcium, Blood 8.1 mg/dL (8.5-10.1); Creatinine, Blood 1.03 mg/dL (0.40-1.00); Potassium, Blood 4.4 mmol/L (3.5-5.5)
--- NOTE | 2022-08-28 18:03 | NUR ---
SHIFT SUMMARY- PT ALERT AND ORIENTED X4. PT UP TO BED FOR BREAKFAST AND LUNCH AND DINNER. AMBULATION WITH NURSE SUPERVISION RELATED TO UPCOMING LEFT KNEE REPLACEMENT SURGERY. PT IS STEADY ON FEET WITH NO ASSISTANCE NEEDED. NO COMPLAINTS OF NAUSEA THIS SHIFT. PT STATED THAT SHE IS FEELING MUCH BETTER TODAY THAN YESTERDAY.
--- NOTE | 2022-08-29 05:45 | NUR ---
A/OX4; CALM AND COOPERATIVE. [place]; HEARING AIDS AT BEDSIDE. IND WITH CANE AT BASELINE; SBA FOR SAFETY OVERNIGHT DENIES PAIN AT THIS TIME. NO C/O NAUSEA THIS SHIFT. NON-WATER PO FLUID OPTIONS ENCOURAGED. NA TABLETS AND IVF PER ORDERS. SLEEP PROMOTED. CALL LIGHT IN REACH; ENCOURAGED TO MAKE NEEDS KNOWN. BED ALARM SET
--- NOTE | 2022-08-29 07:54 | NUR ---
Pt laying in bed awake a/ox4, pleasant and cooperative with care, follows commands well, reports neck and shoulder pain at 2/10 after medication, reports she slept well, lungs are clear t/o, resp even and unlabored, no cough noted, on r/a, hrr, no edema noted, ppp+2 cap refill <3sec, vs stable, afebrile, iv site is clear and patent, btx4, abd flat soft nontender, voids without diff, states she can feel a bit of burning on voids but is better, skin c/w/d, sheron allison, call light in reach.
[2022-08-29 08:49] LABS: Calcium, Blood 8.5 mg/dL (8.5-10.1); Creatinine, Blood 0.82 mg/dL (0.40-1.00); Potassium, Blood 4.5 mmol/L (3.5-5.5)
[2022-08-29] MEDS ORDERED: LEVFLO500 PO (10:37)
--- NOTE | 2022-08-29 10:56 | NUR ---
Pt has been discharged to home, son here to pick her up, iv removed intact, went over discharge instructions with pt, she verbalized understanding, faxed new medication to [facility], left via ambulation with her son in attendence, with all her belongings.
== END 2022-08-29 10:50 | disposition home health service (06) | DRG 641 ==
LOC: ER 18:32 → MEDS 18:33
PROVIDERS: Internal Medicine; Student in an Organized Health Care Education/Training Program; ADMIT Internal Medicine
DX: E87.1 Hypo-osmolality and hyponatremia (principal); N39.0 Urinary tract infection, site not specified; I10 Essential (primary) hypertension; K21.9 Gastro-esophageal reflux disease without esophagitis; E78.5 Hyperlipidemia, unspecified; K29.70 Gastritis, unspecified, without bleeding; E86.0 Dehydration; M19.90 Unspecified osteoarthritis, unspecified site; Z88.8 Allergy status to other drugs, medicaments and biological substances; Z79.899 Other long term (current) drug therapy; Z79.01 Long term (current) use of anticoagulants; Z79.52 Long term (current) use of systemic steroids; Z79.51 Long term (current) use of inhaled steroids; Z87.19 Personal history of other diseases of the digestive system; Z90.710 Acquired absence of both cervix and uterus; Z90.49 Acquired absence of other specified parts of digestive tract; Z98.890 Other specified postprocedural states
CPT/HCPCS: 36415; 80048; 80053; 81001; 84295; 85025; 96360; 96372; 96372-59; 96374; 96375; 97116; 97161; 97530; 99285-25; A9270; G0378; J1650; J2405; J2550; J7030

== ENCOUNTER 2022-09-12 08:52 | Day surgery (SDC) | payer MEDICARE ==
[~2022-09-12] VITALS: Ht 165.1 cm; Wt 71.8 kg
[~2022-09-12 08:52] MED LIST changes: -ACET325 PO; +ACET500 PO; +LEVFLO500 PO
--- NOTE | 2022-09-12 10:36 | NUR ---
History, Chart, Medications and Allergies reviewed before start of procedure. Lungs clear T/O to Auscultation. Patient confirms NPO status and agrees with scheduled surgery. Pre-Op teaching done. Pt verbalizes understanding. PT BELONGINGS PLACED UNDERNEATH GURNEY FOR SAFEKEEPING. PT JEWELRY PLACED IN PURSE IN BAG UNDERNEATH GURNEY FOR SAFEKEEPING. PT GLASSES AND CANE TAKEN TO PACU FOR SAFEKEEPING.
--- NOTE | 2022-09-12 14:12 | NUR ---
PT ARRIVED TO THE ROOM FROM PACU AT APPROXIMATELY 1320. PT REPORTED PAIN MANAGED AT TIME OF ARRIVAL. PT COMPLAINING OF NAUSEA AND HAD ZOFRAN IN PACU. HR IN THE 50S BUT OCCASIONALLY DROPPING TO 40S AND LOW 38 INTERMITTENTLY. L TKA SITE WNL, AQUACEL IN PLACE.
--- NOTE | 2022-09-12 14:15 | NUR ---
BRADYCARDIA PT'S HR CONTINUED TO DROP INTO THE 40'S AND SEEN LOW 38. PT COMPLAINS OF NAUSEA AND SHORTNESS OF BREATH. PT DENIES OTHER SYMPTOMS OF LOW HR. REACHED OUT TO DR. SWEET AT 1339 R/T LOW HR. TELE WAS PLACED BY THIS RN. DR. SWEET NOTIFIED OF INTERVENTIONS AT 1405 AND ORDERED HOSPITALIST CONSTULT. DR. MAYORGA NOTIFIED OF LOW HR AND SYMPTOMS. EKG ORDERED BY DR. SWEET AND COMPLETED BY JUAN R MOORE.
[2022-09-12 15:26] LABS: BASOPHILS ABSOLUTE AUTO 0.03 K/mm3 (0.00-0.23); BASOPHILS PERCENT AUTO 1 % (0-2); EOSINOPHILS ABSOLUTE AUTO 0.05 K/mm3 (0.00-0.68); EOSINOPHILS PERCENT AUTO 1 % (0-6); Hematocrit 31.6 % (33.0-51.0); Hemoglobin 10.7 g/dL (11.5-16.0); IMMATURE GRAN ABSOLUTE AUTO 0.01 K/mm3 (0.00-0.10); IMMATURE GRAN PERCENT AUTO 0 % (0-1); LYMPHOCYTES ABSOLUTE AUTO 0.93 K/mm3 (0.84-5.20); LYMPHOCYTES PERCENT AUTO 23 % (21-46); MONOCYTES ABSOLUTE AUTO 0.32 K/mm3 (0.16-1.47); MONOCYTES PERCENT AUTO 8 % (4-13); Mean Corpuscular HGB 31.2 pg (26.0-34.0); Mean Corpuscular HGB Conc 33.9 g/dL (31.5-36.5); Mean Corpuscular Volume 92 fL (80-100); Mean Platelet Volume 8.8 fL (9.1-12.4); NEUTROPHILS PERCENT AUTO 68 % (41-73); Platelet Count 207 K/mm3 (150-400); RDW Coefficient Variation 12.6 % (11.7-14.2); RDW Standard Deviation 43.2 fL (35.1-46.3); Red Blood Cell Count 3.43 M/mm3 (3.80-5.20); White Blood Cell Count 4.14 K/mm3 (4.00-11.30)
[2022-09-12 15:46] LABS: Albumin, Blood 3.4 g/dL (3.4-5.0); Albumin/Globulin Ratio 1.2 (0.8-1.8); Bilirubin, Total 0.3 mg/dL (0.1-1.0); Bun/Creatinine Ratio 18.1 (12.0-20.0); Calcium, Blood 8.4 mg/dL (8.5-10.1); Creatinine, Blood 0.72 mg/dL (0.40-1.00); Globulin, Blood 2.9 g/dL (2.2-4.0); Magnesium, Blood 1.4 mg/dL (1.6-2.4); Potassium, Blood 4.3 mmol/L (3.5-5.5); Total Protein, Blood 6.3 g/dL (6.4-8.2)
--- NOTE | 2022-09-12 16:35 | NUR ---
BRADYCARDIA HR APPEARS TO BE IMPROVING. PT'S HR IS MAINTAINING 50S TO 60S WITH OCCASIONAL DROP IN HR TO HIGH 40S. PT IS ASYMPTOMATIC.
--- NOTE | 2022-09-12 19:53 | NUR ---
SHIFT SUMMARY PT IS POD#0 FROM L TKA WITH DR. SWEET. PT WAS BRADYCARDIC POST OP (SEE NOTE), PT REMAINS ON TELE AND IS SINUS LAYLA IN THE 50S, BRADYCARDIA HAS IMPROVED SINCE PT ARRIVED TO THE UNIT. PT HAS HAD MINIMAL L KNEE PAIN BUT COMPLAINS OF CHRONIC NECK PAIN. PT REPORTS PAIN IS UNCHANGED FROM BASELINE. PT WAS ABLE TO GET OOB TO THE RECLINER THIS AFTERNOON. SHE HAS BEEN ABLE TO VOID. PT HAS TOLERATED SMALL AMOUNTS OF PO. PT DENIES NAUSEA AFTER TAKING PHENERGAN THIS AFTERNOON. PAIN MANAGED WITH TYLENOL AND OXYCODONE.
--- NOTE | 2022-09-13 00:31 | NUR ---
TRANSFERED CARE TO ANA MOORE.
[2022-09-13 04:31] LABS: BASOPHILS ABSOLUTE AUTO 0.03 K/mm3 (0.00-0.23); BASOPHILS PERCENT AUTO 1 % (0-2); EOSINOPHILS ABSOLUTE AUTO 0.14 K/mm3 (0.00-0.68); EOSINOPHILS PERCENT AUTO 2 % (0-6); Hematocrit 30.2 % (33.0-51.0); Hemoglobin 10.2 g/dL (11.5-16.0); IMMATURE GRAN ABSOLUTE AUTO 0.02 K/mm3 (0.00-0.10); IMMATURE GRAN PERCENT AUTO 0 % (0-1); LYMPHOCYTES ABSOLUTE AUTO 1.33 K/mm3 (0.84-5.20); LYMPHOCYTES PERCENT AUTO 22 % (21-46); MONOCYTES ABSOLUTE AUTO 0.32 K/mm3 (0.16-1.47); MONOCYTES PERCENT AUTO 5 % (4-13); Mean Corpuscular HGB 30.9 pg (26.0-34.0); Mean Corpuscular HGB Conc 33.8 g/dL (31.5-36.5); Mean Corpuscular Volume 92 fL (80-100); Mean Platelet Volume 9.1 fL (9.1-12.4); NEUTROPHILS ABSOLUTE AUTO 4.19 K/mm3 (1.96-9.15); NEUTROPHILS PERCENT AUTO 70 % (41-73); Platelet Count 217 K/mm3 (150-400); RDW Coefficient Variation 12.4 % (11.7-14.2); RDW Standard Deviation 41.4 fL (35.1-46.3); White Blood Cell Count 6.03 K/mm3 (4.00-11.30)
[2022-09-13 04:56] LABS: Bun/Creatinine Ratio 15.8 (12.0-20.0); Calcium, Blood 8.1 mg/dL (8.5-10.1); Creatinine, Blood 0.76 mg/dL (0.40-1.00); Potassium, Blood 4.1 mmol/L (3.5-5.5)
--- NOTE | 2022-09-13 05:46 | NUR ---
SHIFT SUMMARY ASSUMED CARE OF PT FROM HEATHER MOORE AROUND 0030. AOX4. VSS. POD 1-L TOTAL KNEE. AQUACEL C/D/I. DENIES N/T. CAP REFIL <3. ABLE TO RAISE LLE & WIGGLE TOES. REPORTS MOD 02/06 MUSCLE SPASM PAIN IN L KNEE, MEDICATED 1x C ILYA TORADOL NO RELIEF, THEREFORE MEDICATED c 5MG OXYCODONE & PT ABLE TO REST COMFORTABLY. PT UP AMBULATING MULTx TO RESTROOM 1P ASSIST c GB & FWW. CALL LIGHT IN REACH & PT ABLE TO MAKE NEEDS KNOWN.
[2022-09-13] MEDS ORDERED: Aspir 8181 MG PO (09:34)
[2022-09-13] MEDS ORDERED: OXAYDO5 M2 PO (09:37)
--- NOTE | 2022-09-13 13:08 | NUR ---
DISCHARGE PT DISCHARGED AT 1257. PT ASSISTED OUT IN W/C AND BELONGINGS RETURNED. PAIN MANAGED AND VSS AT TIME OF DISCHARGE. PT CALLED AT 1307 REGARDING NEED TO RHEUMATOLOGIST CLEAN DRESSINGS AND INSTRUCTION PACKET. PT STATED SHE WOULD ASK HER SON TO PICK THEM UP.
--- NOTE | 2022-09-13 15:01 | NUR ---
PER PT OK TO PROVIDE DISCHARGE INSTRUCTIONS TO HER SON JON. WRITTEN AND VERBAL DISCHARGE INSTRUCTIONS PROVIDED TO PT'S SON, HE VERBALIZED UNDERSTANDING. CLEAN AQUACEL DRESSINGS PROVIDED.
== END 2022-09-13 12:57 | disposition home or self-care (01) ==
LOC: SURS 08:52 → ORSCMMR 08:52 → ORD 10:00 → ORSCMMR 10:45 → ORD 12:45 → SURS 13:18 → ORSCMMR 09-13 12:57
PROVIDERS: Internal Medicine; Orthopaedic Surgery
PROC: 8E0Y0CZ Robotic Assisted Procedure of Lower Extremity, Open Approach (ICD-10-PCS; principal; 2022-09-12 10:30)
PROC: 0SRD0JA Replacement of Left Knee Joint with Synthetic Substitute, Uncemented, Open Approach (ICD-10-PCS; principal; 2022-09-12 10:30)
DX: M17.12 Unilateral primary osteoarthritis, left knee (principal); I10 Essential (primary) hypertension; K21.9 Gastro-esophageal reflux disease without esophagitis; M79.7 Fibromyalgia; Z79.899 Other long term (current) drug therapy
CPT/HCPCS: 27447; 0055T; S2900; 36415; 73560-LT; 80048; 80053; 83735; 85025; 93005; 93010; 94762; 97110; 97116; 97162; 97530; A9270; C1776; J0171; J0690; J0735; J1170; J1885; J2370; J2405; J2550; J2704; J2795; J3010; J3475; J7120

== ENCOUNTER 2022-10-06 17:40 | Emergency (ER) | payer MEDICARE ==
[~2022-10-06] VITALS: Ht 165.1 cm; Wt 72.6 kg
[~2022-10-06 17:40] MED LIST changes: +OXAYDO5 M2 PO
[2022-10-06 18:48] LABS: Influenza B, PCR NEGATIVE (NEGATIVE); Resp Syncytial Virus, PCR NEGATIVE (NEGATIVE); SARS-Cov-2 (COVID-19) PCR, MMC NEGATIVE (NEGATIVE)
[2022-10-06 20:56] LABS: Influenza A, PCR POSITIVE (NEGATIVE)
[2022-10-09] MEDS ORDERED: PRAMIPEXOLE0.125 M1 PO (12:11)
[2022-10-09] MEDS ORDERED: ONDA4ODT MM (13:40)
== END 2022-10-06 21:07 | disposition left against medical advice (07) ==
LOC: ER 17:40
PROVIDERS: Student in an Organized Health Care Education/Training Program
DX: R05.9 Cough, unspecified (principal); Z53.21 Procedure and treatment not carried out due to patient leaving prior to being seen by health care provider
CPT/HCPCS: 0241U; 99281

== ENCOUNTER → 2022-11-09 | Outpatient (CLI) | payer MEDICARE ==
[~2022-11-09] MED LIST changes: +PRAMIPEXOLE0.125 M1 PO
== END | disposition home or self-care (01) ==
LOC: LAB 08:30 → LAB SHORT 08:30
DX: N39.0 Urinary tract infection, site not specified (principal)
CPT/HCPCS: 87077; 87086; 87186

== ENCOUNTER → 2022-11-25 | Outpatient (CLI) | payer MEDICARE ==
[2022-11-25 13:14] LABS: Source, Urine Clean Catch
[2022-11-25 17:29] LABS: Appearance, Urine Cloudy (Clear); Bilirubin, Urine Neg (Neg); Blood, Urine 4+ (Neg); Color, Urine Yellow (P-Yellow); Glucose Qualitative, Urine Neg (Neg); Ketones, Urine Neg (Neg); Leukocyte Esterase, Urine 3+ (Neg); Nitrite, Urine Neg (Neg); Protein, Urine 3+ (Neg); Urobilinogen, Urine NORM (Normal)
[2022-11-25 17:46] LABS: Bacteria Many /hpf; Hyaline Casts 0-2 /lpf (0-2); Renal Epithelial Rare /hpf (0-Rare); Squamous Epithelial Cells Few /hpf (Few); White Blood Cells, Urine 50-100 /hpf (0-5)
== END | disposition home or self-care (01) ==
LOC: LAB 12:00 → LAB SHORT 12:00 → LAB FUT 09-08 12:20 → EDSTATUS 09-08 12:20
PROVIDERS: Urology
DX: N39.0 Urinary tract infection, site not specified (principal); R19.7 Diarrhea, unspecified
CPT/HCPCS: 81001; 87086; 87186

== ENCOUNTER → 2023-01-03 | Outpatient (CLI) | payer MEDICARE ==
[2023-01-03 13:48] LABS: Source, Urine Clean Catch
[2023-01-03 18:26] LABS: Appearance, Urine Clear (Clear); Bilirubin, Urine Neg (Neg); Blood, Urine Neg (Neg); Color, Urine Yellow (P-Yellow); Glucose Qualitative, Urine Neg (Neg); Ketones, Urine Neg (Neg); Leukocyte Esterase, Urine Neg (Neg); Nitrite, Urine Neg (Neg); Protein, Urine Neg (Neg); Urobilinogen, Urine NORM (Normal)
== END | disposition home or self-care (01) ==
LOC: LAB SHORT 13:00 → LAB 13:00
PROVIDERS: Urology
DX: N39.0 Urinary tract infection, site not specified (principal); R31.0 Gross hematuria
CPT/HCPCS: 81003; 87086

== ENCOUNTER → 2023-02-03 | Outpatient (CLI) | payer MEDICARE ==
[2023-02-03 09:55] LABS: Source, Urine Clean Catch
[2023-02-03 13:18] LABS: Bilirubin, Urine Neg (Neg); Blood, Urine Neg (Neg); Color, Urine Yellow (P-Yellow); Glucose Qualitative, Urine Neg (Neg); Ketones, Urine Neg (Neg); Leukocyte Esterase, Urine 2+ (Neg); Nitrite, Urine Neg (Neg); Protein, Urine 1+ (Neg); Urobilinogen, Urine NORM (Normal)
[2023-02-03 14:06] LABS: Appearance, Urine Hazy (Clear)
[2023-02-03 14:07] LABS: Amorphous Light (0-Heavy); Bacteria Many /hpf; Mucus Light (0-Heavy); Red Blood Cells, Urine 0-2 /hpf (0-2); Squamous Epithelial Cells Rare /hpf (Few); Transitional Epithelial Cells Rare /hpf (0-Rare); Yeast/Fungi Urine Rare /hpf
== END | disposition home or self-care (01) ==
LOC: LAB SHORT 06:00 → LAB 06:00 → LAB FUT 02-02 15:00
PROVIDERS: Urology
DX: N39.0 Urinary tract infection, site not specified (principal)
CPT/HCPCS: 81001; 87086

== ENCOUNTER → 2023-02-27 | Outpatient (CLI) | payer MEDICARE ==
[2023-02-27 14:14] LABS: Source, Urine Clean Catch
[2023-02-27 17:48] LABS: Appearance, Urine Cloudy (Clear); Bilirubin, Urine Neg (Neg); Blood, Urine 2+ (Neg); Color, Urine Yellow (P-Yellow); Glucose Qualitative, Urine Neg (Neg); Ketones, Urine Neg (Neg); Leukocyte Esterase, Urine 3+ (Neg); Nitrite, Urine Neg (Neg); Protein, Urine 1+ (Neg); Urobilinogen, Urine NORM (Normal)
[2023-02-27 18:00] LABS: White Blood Cells, Urine TNTC /hpf (0-5)
[2023-02-27 18:01] LABS: Bacteria Many /hpf; Squamous Epithelial Cells Few /hpf (Few)
== END | disposition home or self-care (01) ==
LOC: LAB SHORT 13:00 → LAB 13:00
PROVIDERS: Urology
DX: N39.0 Urinary tract infection, site not specified (principal)
CPT/HCPCS: 81001; 87077; 87086; 87186

== ENCOUNTER → 2023-04-05 | Outpatient (CLI) | payer MEDICARE | LOC: LAB SHORT 10:42 → LAB 10:42 | DX: R30.0 Dysuria (principal); R35.0 Frequency of micturition | CPT/HCPCS: 87077; 87086; 87186 ==

== ENCOUNTER → 2023-05-03 | Outpatient (CLI) | payer MEDICARE ==
[2023-05-03 07:31] LABS: Source, Urine Clean Catch
[2023-05-03 12:36] LABS: Appearance, Urine Hazy (Clear); Bilirubin, Urine Neg (Neg); Blood, Urine 1+ (Neg); Color, Urine Yellow (P-Yellow); Glucose Qualitative, Urine Neg (Neg); Ketones, Urine Neg (Neg); Leukocyte Esterase, Urine 3+ (Neg); Nitrite, Urine Neg (Neg); Protein, Urine 1+ (Neg); Specific Gravity, Urine 1.005 (1.003-1.022); Urobilinogen, Urine NORM (Normal); pH, Urine 6.5 (5.0-8.0)
[2023-05-03 12:46] LABS: Bacteria Mod /hpf; Squamous Epithelial Cells Rare /hpf (Few); White Blood Cells, Urine 50-100 /hpf (0-5)
== END | disposition home or self-care (01) ==
LOC: LAB SHORT 06:30 → LAB 06:30
PROVIDERS: Family Medicine
DX: R30.0 Dysuria (principal)
CPT/HCPCS: 81001; 87077; 87086; 87186

== ENCOUNTER 2023-06-05 08:33 | Emergency (ER) | payer MEDICARE ==
[~2023-06-05] VITALS: Ht 157.5 cm; Wt 56.7 kg
[2023-06-05 09:20] VITALS: BP 161/85
[2023-06-05] MEDS ORDERED: Norco 5-325 Ta1 EACH PO (09:54)
== END 2023-06-05 10:24 | disposition home or self-care (01) ==
LOC: ER 08:33
DX: M54.16 Radiculopathy, lumbar region (principal); G89.29 Other chronic pain; Z88.8 Allergy status to other drugs, medicaments and biological substances; Z79.899 Other long term (current) drug therapy; Z79.82 Long term (current) use of aspirin; I10 Essential (primary) hypertension; K21.9 Gastro-esophageal reflux disease without esophagitis; M19.90 Unspecified osteoarthritis, unspecified site; E78.5 Hyperlipidemia, unspecified
CPT/HCPCS: 96372; 99283-25; J1885

== ENCOUNTER → 2023-06-15 | Outpatient (CLI) | payer MEDICARE ==
[~2023-06-15] MED LIST changes: +Norco 5-325 Ta1 EACH PO
== END | disposition home or self-care (01) ==
LOC: LAB SHORT 06:00 → LAB 06:00 → EDSTATUS 06-13 15:05 → LAB FUT 06-13 15:05
DX: N39.0 Urinary tract infection, site not specified (principal)
CPT/HCPCS: 87077; 87086; 87186

== ENCOUNTER 2023-07-22 11:33 | Emergency (ER) | payer MEDICARE ==
[~2023-07-22] VITALS: Ht 165.1 cm; Wt 69.0 kg
[2023-07-22] MEDS ORDERED: Amitriptyline H10 MG (11:58)
[2023-07-22] MEDS ORDERED: Cyclobenzaprine5 MG (11:58)
[2023-07-22] MEDS ORDERED: OMEP20ER (11:58)
[2023-07-22] MEDS ORDERED: FURO20 (11:58)
[2023-07-22 12:29] LABS: BASOPHILS ABSOLUTE AUTO 0.03 K/mm3 (0.00-0.23); BASOPHILS PERCENT AUTO 1 % (0-2); EOSINOPHILS ABSOLUTE AUTO 0.07 K/mm3 (0.00-0.68); EOSINOPHILS PERCENT AUTO 1 % (0-6); Hematocrit 31.3 % (33.0-51.0); Hemoglobin 10.9 g/dL (11.5-16.0); IMMATURE GRAN ABSOLUTE AUTO 0.02 K/mm3 (0.00-0.10); IMMATURE GRAN PERCENT AUTO 0 % (0-1); LYMPHOCYTES ABSOLUTE AUTO 1.07 K/mm3 (0.84-5.20); LYMPHOCYTES PERCENT AUTO 16 % (21-46); MONOCYTES ABSOLUTE AUTO 0.47 K/mm3 (0.16-1.47); MONOCYTES PERCENT AUTO 7 % (4-13); Mean Corpuscular HGB 31.4 pg (26.0-34.0); Mean Corpuscular HGB Conc 34.8 g/dL (31.5-36.5); Mean Corpuscular Volume 90 fL (80-100); Mean Platelet Volume 9.3 fL (9.1-12.4); NEUTROPHILS PERCENT AUTO 75 % (41-73); Platelet Count 225 K/mm3 (150-400); RDW Coefficient Variation 12.5 % (11.7-14.2); RDW Standard Deviation 40.7 fL (35.1-46.3); Red Blood Cell Count 3.47 M/mm3 (3.80-5.20); White Blood Cell Count 6.56 K/mm3 (4.00-11.30)
[2023-07-22 12:59] LABS: Thyroid Stimulating Hormone 1.7 uIU/mL (0.360-4.800)
[2023-07-22 13:30] LABS: Bun/Creatinine Ratio 23.5 (12.0-20.0); Calcium, Blood 8.5 mg/dL (8.5-10.1); Creatinine, Blood 0.77 mg/dL (0.40-1.00); Magnesium, Blood 1.1 mg/dL (1.6-2.4)
[2023-07-22 14:15] VITALS: BP 145/68
[2023-07-22] MEDS ORDERED: MAGNESIUM OXID500 MG PO (14:21)
[2023-07-22] MEDS ORDERED: SODCHL1 PO (14:21)
== END 2023-07-22 14:27 | disposition home or self-care (01) ==
LOC: ER 11:33
PROVIDERS: Emergency Medicine
DX: E87.1 Hypo-osmolality and hyponatremia (principal); E83.42 Hypomagnesemia; R00.2 Palpitations; I10 Essential (primary) hypertension; E78.5 Hyperlipidemia, unspecified; K21.9 Gastro-esophageal reflux disease without esophagitis; Z88.8 Allergy status to other drugs, medicaments and biological substances; Z79.899 Other long term (current) drug therapy; Z79.51 Long term (current) use of inhaled steroids; Z79.82 Long term (current) use of aspirin
CPT/HCPCS: 80048; 83735; 84443; 85025; 93005; 93010; 99285-25

== ENCOUNTER → 2023-08-07 | Outpatient (CLI) | payer MEDICARE ==
[~2023-08-07] MED LIST changes: +Amitriptyline H10 MG; +Cyclobenzaprine5 MG; +FURO20; +OMEP20ER; +SODCHL1 PO
[2023-08-07 11:16] LABS: Source, Urine Clean Catch
[2023-08-07 12:41] LABS: Appearance, Urine Hazy (Clear); Bilirubin, Urine Neg (Neg); Blood, Urine Neg (Neg); Color, Urine Yellow (P-Yellow); Glucose Qualitative, Urine Neg (Neg); Ketones, Urine Neg (Neg); Leukocyte Esterase, Urine 2+ (Neg); Nitrite, Urine Neg (Neg); Protein, Urine Neg (Neg); Urobilinogen, Urine NORM (Normal); pH, Urine 6.5 (5.0-8.0)
[2023-08-07 13:06] LABS: Bacteria Many /hpf; Squamous Epithelial Cells Few /hpf (Few); Transitional Epithelial Cells Rare /hpf (0-Rare); White Blood Cells, Urine 50-100 /hpf (0-5)
== END | disposition home or self-care (01) ==
LOC: LAB SHORT 06:30 → LAB 06:30
PROVIDERS: Urology
DX: N39.0 Urinary tract infection, site not specified (principal)
CPT/HCPCS: 81001; 87077; 87086; 87186

== ENCOUNTER → 2023-09-14 | Outpatient (CLI) | payer MEDICARE ==
[2023-09-14 13:56] LABS: Source, Urine Clean Catch
[2023-09-14 17:29] LABS: Appearance, Urine Cloudy (Clear); Bilirubin, Urine Neg (Neg); Blood, Urine 1+ (Neg); Color, Urine Yellow (P-Yellow); Glucose Qualitative, Urine Neg (Neg); Ketones, Urine Neg (Neg); Leukocyte Esterase, Urine 3+ (Neg); Nitrite, Urine Pos (Neg); Protein, Urine 1+ (Neg); Specific Gravity, Urine 1.005 (1.003-1.022); Urobilinogen, Urine NORM (Normal)
[2023-09-14 17:39] LABS: Bacteria Many /hpf; Squamous Epithelial Cells Few /hpf (Few); White Blood Cells, Urine 50-100 /hpf (0-5)
[2023-09-14 17:40] LABS: Transitional Epithelial Cells Rare /hpf (0-Rare)
== END | disposition home or self-care (01) ==
LOC: LAB 06:30 → LAB SHORT 06:30
PROVIDERS: Urology
DX: N39.0 Urinary tract infection, site not specified (principal)
CPT/HCPCS: 81001; 87077; 87086; 87186

== ENCOUNTER → 2023-09-27 | Outpatient (CLI) | payer MEDICARE ==
[~2023-09-27] MED LIST changes: +CEFP200 PO
[2023-09-27 11:31] LABS: Source, Urine Clean Catch
[2023-09-27 12:32] LABS: Appearance, Urine Cloudy (Clear); Blood, Urine 2+ (Neg); Glucose Qualitative, Urine Neg (Neg); Ketones, Urine Neg (Neg); Leukocyte Esterase, Urine 3+ (Neg); Nitrite, Urine Pos (Neg); Protein, Urine 2+ (Neg); Specific Gravity, Urine 1.005 (1.003-1.022); Urobilinogen, Urine 2+ (Normal)
[2023-09-27 12:52] LABS: Bilirubin, Urine 1+ (Neg); Color, Urine Orange (P-Yellow)
[2023-09-27 13:02] LABS: White Blood Cells, Urine 50-100 /hpf (0-5)
[2023-09-27 13:04] LABS: Bacteria Many /hpf; Squamous Epithelial Cells Rare /hpf (Few)
[2023-09-27 13:05] LABS: Red Blood Cells, Urine 0-2 /hpf (0-2)
== END | disposition home or self-care (01) ==
LOC: LAB SHORT 11:00 → LAB FUT 07-05 08:55
PROVIDERS: Physician Assistant Medical
DX: N39.0 Urinary tract infection, site not specified (principal); R19.7 Diarrhea, unspecified
CPT/HCPCS: 81001; 87077; 87086; 87186

== ENCOUNTER 2023-09-30 02:14 | Emergency (ER) | payer MEDICARE ==
[~2023-09-30] VITALS: Ht 157.5 cm; Wt 68.0 kg
[~2023-09-30 02:14] MED LIST changes: -CEFP200 PO
[2023-09-30 02:48] LABS: BASOPHILS ABSOLUTE AUTO 0.02 K/mm3 (0.00-0.23); BASOPHILS PERCENT AUTO 0 % (0-2); EOSINOPHILS ABSOLUTE AUTO 0.01 K/mm3 (0.00-0.68); EOSINOPHILS PERCENT AUTO 0 % (0-6); Hematocrit 29.1 % (33.0-51.0); Hemoglobin 9.9 g/dL (11.5-16.0); IMMATURE GRAN ABSOLUTE AUTO 0.06 K/mm3 (0.00-0.10); IMMATURE GRAN PERCENT AUTO 1 % (0-1); LYMPHOCYTES ABSOLUTE AUTO 0.44 K/mm3 (0.84-5.20); LYMPHOCYTES PERCENT AUTO 5 % (21-46); MONOCYTES PERCENT AUTO 7 % (4-13); Mean Corpuscular HGB 31.8 pg (26.0-34.0); Mean Corpuscular Volume 94 fL (80-100); Mean Platelet Volume 8.8 fL (9.1-12.4); NEUTROPHILS ABSOLUTE AUTO 7.86 K/mm3 (1.96-9.15); NEUTROPHILS PERCENT AUTO 87 % (41-73); Platelet Count 194 K/mm3 (150-400); RDW Coefficient Variation 13.2 % (11.7-14.2); RDW Standard Deviation 45.1 fL (35.1-46.3); Red Blood Cell Count 3.11 M/mm3 (3.80-5.20); White Blood Cell Count 8.99 K/mm3 (4.00-11.30)
[2023-09-30 02:58] LABS: Source, Urine Fem Cath
[2023-09-30 03:02] LABS: Bilirubin, Total 0.8 mg/dL (0.1-1.0); Bun/Creatinine Ratio 23.1 (12.0-20.0); Calcium, Blood 8.4 mg/dL (8.5-10.1); Creatinine, Blood 0.78 mg/dL (0.40-1.00); Globulin, Blood 3.1 g/dL (2.2-4.0); Potassium, Blood 3.7 mmol/L (3.5-5.5); Total Protein, Blood 6.1 g/dL (6.4-8.2)
[2023-09-30 03:11] LABS: Bilirubin, Urine Neg (Neg); Blood, Urine 2+ (Neg); Glucose Qualitative, Urine Neg (Neg); Ketones, Urine Neg (Neg); Leukocyte Esterase, Urine 3+ (Neg); Nitrite, Urine Neg (Neg); Protein, Urine 2+ (Neg); Urobilinogen, Urine NORM (Normal); pH, Urine 6.5 (5.0-8.0)
[2023-09-30 03:16] LABS: Appearance, Urine Hazy (Clear); Color, Urine Yellow (P-Yellow)
[2023-09-30 03:24] LABS: Bacteria Many /hpf; Red Blood Cells, Urine 0-2 /hpf (0-2); Squamous Epithelial Cells Few /hpf (Few); White Blood Cells, Urine TNTC /hpf (0-5)
[2023-09-30] MEDS ORDERED: CefTRIAXone Sodium 1,000 MG in NS 50 ML IV ONE (06:00)
[2023-09-30 06:27] LABS: Source, Urine Foley catheter
[2023-09-30 06:40] LABS: Bilirubin, Urine Neg (Neg); Blood, Urine 2+ (Neg); Glucose Qualitative, Urine Neg (Neg); Ketones, Urine Neg (Neg); Leukocyte Esterase, Urine 3+ (Neg); Nitrite, Urine Neg (Neg); Protein, Urine 1+ (Neg); Urobilinogen, Urine NORM (Normal)
[2023-09-30 06:45] LABS: Appearance, Urine Clear (Clear); Color, Urine Yellow (P-Yellow)
[2023-09-30 06:48] LABS: Bacteria Few /hpf; Red Blood Cells, Urine 0-2 /hpf (0-2); Squamous Epithelial Cells Rare /hpf (Few); White Blood Cells, Urine 25-50 /hpf (0-5)
[2023-09-30] MEDS ORDERED: CEFP200 PO (07:12)
[2023-09-30 08:41] VITALS: BP 148/78
== END 2023-09-30 08:41 | disposition home or self-care (01) ==
LOC: ER 02:14
PROVIDERS: Emergency Medicine; Student in an Organized Health Care Education/Training Program
DX: N39.0 Urinary tract infection, site not specified (principal); E87.1 Hypo-osmolality and hyponatremia; D64.9 Anemia, unspecified; I10 Essential (primary) hypertension; M19.90 Unspecified osteoarthritis, unspecified site; E78.5 Hyperlipidemia, unspecified; Z96.0 Presence of urogenital implants; K21.9 Gastro-esophageal reflux disease without esophagitis; Z79.82 Long term (current) use of aspirin; Z79.51 Long term (current) use of inhaled steroids; Z79.899 Other long term (current) drug therapy; Z88.8 Allergy status to other drugs, medicaments and biological substances
CPT/HCPCS: 51702; 80053; 81001; 85025; J0696; P9612

== ENCOUNTER → 2024-02-08 | Outpatient (CLI) | payer MEDICARE ==
[~2024-02-08] MED LIST changes: +CEFP200 PO; +CEPH500 PO; +FUROSEMIDE40 MG PO; +Vitamin B Comple1 EA PO
[2024-02-08 10:30] LABS: Source, Urine Clean Catch
[2024-02-08 12:38] LABS: Appearance, Urine Clear (Clear); Blood, Urine Neg (Neg); Glucose Qualitative, Urine Neg (Neg); Ketones, Urine Neg (Neg); Leukocyte Esterase, Urine 3+ (Neg); Nitrite, Urine Pos (Neg); Protein, Urine Neg (Neg); Urobilinogen, Urine 2+ (Normal)
[2024-02-08 12:47] LABS: Bilirubin, Urine 2+ (Neg)
[2024-02-08 12:49] LABS: Color, Urine Orange (P-Yellow)
[2024-02-08 12:54] LABS: Bacteria Many /hpf; Red Blood Cells, Urine Not Seen /hpf (0-2); Squamous Epithelial Cells Not Seen /hpf (Few); White Blood Cells, Urine 25-50 /hpf (0-5)
== END | disposition home or self-care (01) ==
LOC: LAB SHORT 07:30 → LAB 07:30
PROVIDERS: Nurse Practitioner Family
DX: R30.9 Painful micturition, unspecified (principal)
CPT/HCPCS: 81001; 87077; 87086; 87186

== ENCOUNTER → 2024-08-16 | Outpatient (CLI) | payer MEDICARE | LOC: LAB 08:45 → LAB SHORT 08:45 | DX: R19.7 Diarrhea, unspecified (principal) | CPT/HCPCS: 87015; 87045; 87046; 87205; 87899 ==

== ENCOUNTER 2024-09-06 19:45 | Emergency (ER) | payer MEDICARE ==
[~2024-09-06] VITALS: Ht 165.1 cm; Wt 63.5 kg
[2024-09-06 19:49] VITALS: BP 143/74
[2024-09-06] MEDS ORDERED: Ipratropium/Albuterol SulF 2.5-0.5MG/3 ML Amp INH ONE (19:55)
[2024-09-06] MEDS ORDERED: Benzonatate 100 MG Cap PO ONE (20:45)
[2024-09-06] MEDS ORDERED: BUDESONIDE-FO10.2 G2 INH (20:49)
[2024-09-06] MEDS ORDERED: BENZ100A PO (20:49)
== END 2024-09-06 21:35 | disposition home or self-care (01) ==
LOC: ER 19:45
DX: J06.9 Acute upper respiratory infection, unspecified (principal); I10 Essential (primary) hypertension; K21.9 Gastro-esophageal reflux disease without esophagitis; E78.5 Hyperlipidemia, unspecified; M19.90 Unspecified osteoarthritis, unspecified site; Z87.891 Personal history of nicotine dependence; Z79.899 Other long term (current) drug therapy; Z88.8 Allergy status to other drugs, medicaments and biological substances
CPT/HCPCS: 71045; 94640; 94664; 99284-25; A9270

== ENCOUNTER 2024-10-06 14:19 | Observation (INO) | payer MEDICARE ==
[~2024-10-06] VITALS: Ht 165.1 cm; Wt 64.9 kg
[~2024-10-06 14:19] MED LIST changes: +BUDESONIDE-FO10.2 G2 INH
[2024-10-06 15:18] LABS: BASOPHILS ABSOLUTE AUTO 0.03 K/mm3 (0.00-0.23); BASOPHILS PERCENT AUTO 1 % (0-2); EOSINOPHILS ABSOLUTE AUTO 0.06 K/mm3 (0.00-0.68); EOSINOPHILS PERCENT AUTO 1 % (0-6); Hematocrit 29.1 % (33.0-51.0); Hemoglobin 9.9 g/dL (11.5-16.0); IMMATURE GRAN ABSOLUTE AUTO 0.02 K/mm3 (0.00-0.10); IMMATURE GRAN PERCENT AUTO 0 % (0-1); LYMPHOCYTES PERCENT AUTO 19 % (21-46); MONOCYTES ABSOLUTE AUTO 0.33 K/mm3 (0.16-1.47); MONOCYTES PERCENT AUTO 6 % (4-13); Mean Corpuscular HGB 31.3 pg (26.0-34.0); Mean Corpuscular Volume 92 fL (80-100); Mean Platelet Volume 8.6 fL (9.1-12.4); NEUTROPHILS ABSOLUTE AUTO 4.39 K/mm3 (1.96-9.15); NEUTROPHILS PERCENT AUTO 74 % (41-73); Platelet Count 292 K/mm3 (150-400); RDW Coefficient Variation 13.2 % (11.7-14.2); RDW Standard Deviation 44.6 fL (35.1-46.3); Red Blood Cell Count 3.16 M/mm3 (3.80-5.20); White Blood Cell Count 5.93 K/mm3 (4.00-11.30)
[2024-10-06 15:35] LABS: Albumin, Blood 3.4 g/dL (3.4-5.0); Bilirubin, Total 0.3 mg/dL (0.1-1.0); Bun/Creatinine Ratio 29.8 (12.0-20.0); Calcium, Blood 8.7 mg/dL (8.5-10.1); Creatinine, Blood 0.81 mg/dL (0.40-1.00); Globulin, Blood 3.5 g/dL (2.2-4.0); Potassium, Blood 3.8 mmol/L (3.5-5.5); Total Protein, Blood 6.9 g/dL (6.4-8.2)
[2024-10-06] MEDS ORDERED: NS 1,000 ML IV SCH (18:00)
[2024-10-06] MEDS ORDERED: Sodium Chloride 1 GM TAB PO SCH (19:00)
[2024-10-06 20:03] VITALS: BP 171/68
[2024-10-06] MEDS ORDERED: FLU VACC TS2024-25(6MOS UP)/PF 45 MCG/0.5 ML SYRINGE IM ONE (21:00)
[2024-10-06] MEDS ORDERED: Acetaminophen 500 MG Tab PO PRN (21:05)
[2024-10-06] MEDS ORDERED: Melatonin 5 MG Tablet PO PRN (21:05)
[2024-10-07 00:39] VITALS: BP 147/62
[2024-10-07 04:22] VITALS: BP 108/57
--- NOTE | 2024-10-07 04:55 | NUR ---
ASSESSED PT NEED FOR STRAIGHT CATH, PT VERBALIZES USING BATHROOM SUCCESSFULLY. PLAN TO STRAIGHT CATH AROUND 0600
[2024-10-07] MEDS ORDERED: Omeprazole 20 MG CapCR PO SCH (06:00)
--- NOTE | 2024-10-07 06:36 | NUR ---
SHIFT SUMMARY PT A&OX4 AND ANSWERS QUESIONS APPROPRIATELY. PT ARRIVED ON UNIT AT 1999 VIA GURNEY AND AMBULATED SBA TO THE BED. PT ORIENTED TO UNIT AND ROOM. VSS, NO COMPLAINTS OF CP/PRESSURE OR SOB. SCHEDULED AND PRN MEDICATINOS GIVEN. PT ABLE TO VOID DURING NIGHT INDEPENDENTLY. PT STRAIGHT CATHED AT 0620 BY THIS NURSE AND MICHAEL WILBURN WITH NO ADVERSE EFFECTS. NO ACUTE EVENTS AT THIS TIME. PT REPOSITIONED INDEPENDENTLY. FALL PRECAUTIONS IN PLACE AND CALL LIGHT IN REACH.
[2024-10-07 06:51] LABS: Bun/Creatinine Ratio 25.9 (12.0-20.0); Calcium, Blood 8.9 mg/dL (8.5-10.1); Creatinine, Blood 0.7 mg/dL (0.40-1.00); Potassium, Blood 3.7 mmol/L (3.5-5.5)
[2024-10-07 08:18] VITALS: BP 132/57
[2024-10-07] MEDS ORDERED: Enoxaparin 40 MG/0.4 ML SYR SC SCH (09:00)
[2024-10-07] MEDS ORDERED: Mag Sulfate 1 GM/D5% 100ML 100 ML IV STA (11:35)
--- NOTE | 2024-10-07 14:03 | NUR ---
PT DISCHARGED AT 1337 ALL PAPERWORK REVIEWED AND EDUCATIONAL MATERIAL SENT WITH HER. PT DID HAVE HER IV INFULTRATE ARM WAS WRAPPED TO HELP WITH SWELLING. ESCORTED OUT TO N ENTRANCE SON TO TRANFER HOME.
== END 2024-10-07 14:13 | disposition home or self-care (01) ==
LOC: ER 14:19 → MEDS 14:20
PROVIDERS: Emergency Medicine; Nurse Practitioner Acute Care; ADMIT Internal Medicine
DX: E87.1 Hypo-osmolality and hyponatremia (principal); R55 Syncope and collapse; D64.89 Other specified anemias; M79.7 Fibromyalgia; E78.5 Hyperlipidemia, unspecified; K21.9 Gastro-esophageal reflux disease without esophagitis; I12.0 Hypertensive chronic kidney disease with stage 5 chronic kidney disease or end stage renal disease; N18.9 Chronic kidney disease, unspecified; Z87.891 Personal history of nicotine dependence; Z88.8 Allergy status to other drugs, medicaments and biological substances
CPT/HCPCS: 36415; 70450; 72125; 80048; 80053; 82570; 83735; 84295; 84300; 84443; 84540; 85025; 93005; 93010; 96372; 96374; 99285-25; A9270; G0378; J1650; J3475

== ENCOUNTER 2025-02-14 16:52 | Emergency (ER) | payer MEDICARE ==
[~2025-02-14] VITALS: Ht 162.6 cm; Wt 74.8 kg
[2025-02-14 17:39] LABS: BASOPHILS ABSOLUTE AUTO 0.03 K/mm3 (0.00-0.23); BASOPHILS PERCENT AUTO 0 % (0-2); EOSINOPHILS ABSOLUTE AUTO 0.02 K/mm3 (0.00-0.68); EOSINOPHILS PERCENT AUTO 0 % (0-6); Hematocrit 34.4 % (33.0-51.0); Hemoglobin 12.2 g/dL (11.5-16.0); IMMATURE GRAN ABSOLUTE AUTO 0.04 K/mm3 (0.00-0.10); IMMATURE GRAN PERCENT AUTO 1 % (0-1); LYMPHOCYTES ABSOLUTE AUTO 1.26 K/mm3 (0.84-5.20); LYMPHOCYTES PERCENT AUTO 17 % (21-46); MONOCYTES ABSOLUTE AUTO 0.55 K/mm3 (0.16-1.47); MONOCYTES PERCENT AUTO 7 % (4-13); Mean Corpuscular HGB Conc 35.5 g/dL (31.5-36.5); Mean Corpuscular Volume 90 fL (80-100); NEUTROPHILS ABSOLUTE AUTO 5.50 K/mm3 (1.96-9.15); NEUTROPHILS PERCENT AUTO 74 % (41-73); NRBC ABSOLUTE 0.00 K/mm3 (0.00-0.02); NRBC Auto 0.0 /100 WBC (0.0-0.2); Platelet Count 278 K/mm3 (150-400); RDW Coefficient Variation 12.6 % (11.7-14.2); RDW Standard Deviation 41.4 fL (35.1-46.3)
[2025-02-14 18:00] LABS: Alanine Aminotransfer (ALT/SGP 20.0 U/L (12-78); Albumin, Blood 4.5 g/dL (3.4-5.0); Albumin/Globulin Ratio 1.5 (0.8-1.8); Anion Gap 12.0 mmol/L (3-11); Aspartate Aminotrans (AST/SGOT 15.0 U/L (12-37); Bilirubin, Total 0.9 mg/dL (0.1-1.0); Blood Urea Nitrogen 15.0 mg/dL (8-24); CO2, Blood 27.0 mmol/L (21-32); Calcium, Blood 9.2 mg/dL (8.5-10.1); Chloride, Blood 86.0 mmol/L (98-108); Creatinine, Blood 0.66 mg/dL (0.40-1.00); Globulin, Blood 3.1 g/dL (2.2-4.0); Glucose, Blood 117.0 mg/dL (70-99); Potassium, Blood 3.6 mmol/L (3.5-5.5); Sodium, Blood 121.0 mmol/L (136-145); Total Protein, Blood 7.6 g/dL (6.4-8.2)
[2025-02-14 20:30] VITALS: BP 160/77
== END 2025-02-14 21:00 | disposition home or self-care (01) ==
LOC: ER 16:52
PROVIDERS: Emergency Medicine
DX: R42 Dizziness and giddiness (principal); K21.9 Gastro-esophageal reflux disease without esophagitis; M19.90 Unspecified osteoarthritis, unspecified site; I10 Essential (primary) hypertension; E78.5 Hyperlipidemia, unspecified; Z87.891 Personal history of nicotine dependence; Z79.51 Long term (current) use of inhaled steroids; Z79.899 Other long term (current) drug therapy; Z88.8 Allergy status to other drugs, medicaments and biological substances
CPT/HCPCS: 71045; 80053; 84484; 85025; 93005; 93010; 99284-25

== ENCOUNTER 2025-02-24 16:36 | Inpatient (IN) | payer MEDICARE ==
[~2025-02-24] VITALS: Ht 165.1 cm; Wt 60.8 kg
[2025-02-24 17:33] LABS: Source, Urine Clean Catch
[2025-02-24 17:36] LABS: BASOPHILS ABSOLUTE AUTO 0.03 K/mm3 (0.00-0.23); BASOPHILS PERCENT AUTO 1 % (0-2); EOSINOPHILS ABSOLUTE AUTO 0.05 K/mm3 (0.00-0.68); EOSINOPHILS PERCENT AUTO 1 % (0-6); Hematocrit 31.3 % (33.0-51.0); Hemoglobin 11.0 g/dL (11.5-16.0); IMMATURE GRAN ABSOLUTE AUTO 0.02 K/mm3 (0.00-0.10); IMMATURE GRAN PERCENT AUTO 0 % (0-1); LYMPHOCYTES ABSOLUTE AUTO 2.00 K/mm3 (0.84-5.20); LYMPHOCYTES PERCENT AUTO 36 % (21-46); MONOCYTES ABSOLUTE AUTO 0.35 K/mm3 (0.16-1.47); MONOCYTES PERCENT AUTO 6 % (4-13); Mean Corpuscular HGB Conc 35.1 g/dL (31.5-36.5); Mean Corpuscular Volume 92 fL (80-100); NEUTROPHILS ABSOLUTE AUTO 3.16 K/mm3 (1.96-9.15); NEUTROPHILS PERCENT AUTO 56 % (41-73); NRBC ABSOLUTE 0.00 K/mm3 (0.00-0.02); NRBC Auto 0.0 /100 WBC (0.0-0.2); Platelet Count 242 K/mm3 (150-400); RDW Coefficient Variation 12.4 % (11.7-14.2); RDW Standard Deviation 41.4 fL (35.1-46.3)
[2025-02-24 17:43] LABS: Bilirubin, Urine Neg (Neg); Color, Urine Yellow (P-Yellow); Glucose Qualitative, Urine Neg (Neg); Ketones, Urine Neg (Neg); Leukocyte Esterase, Urine 1+ (Neg); Protein, Urine 1+ (Neg); Specific Gravity, Urine 1.005 (1.003-1.022); Urobilinogen, Urine NORM (Normal)
[2025-02-24 18:02] LABS: Red Blood Cells, Urine 0-2 /hpf (0-2)
[2025-02-24 18:23] LABS: Alanine Aminotransfer (ALT/SGP 21.0 U/L (12-78); Albumin, Blood 3.9 g/dL (3.4-5.0); Albumin/Globulin Ratio 1.3 (0.8-1.8); Anion Gap 11.0 mmol/L (3-11); Aspartate Aminotrans (AST/SGOT 16.0 U/L (12-37); Bilirubin, Total 0.6 mg/dL (0.1-1.0); Blood Urea Nitrogen 12.0 mg/dL (8-24); CO2, Blood 25.0 mmol/L (21-32); Calcium, Blood 8.6 mg/dL (8.5-10.1); Chloride, Blood 87.0 mmol/L (98-108); Creatinine, Blood 0.58 mg/dL (0.40-1.00); Globulin, Blood 3.0 g/dL (2.2-4.0); Glucose, Blood 103.0 mg/dL (70-99); Potassium, Blood 3.8 mmol/L (3.5-5.5); Sodium, Blood 119.0 mmol/L (136-145); Total Protein, Blood 6.9 g/dL (6.4-8.2)
[2025-02-24] MEDS ORDERED: NS 1,000 ML IV SCH ×2 (18:30→22:30)
[2025-02-24] MEDS ORDERED: Diazepam 5 MG / ML 2ML SYR IV ONE (19:55)
[2025-02-24] MEDS ORDERED: HYDROcodone 5-APAP 325 TAB PO PRN (22:30)
[2025-02-24] MEDS ORDERED: Ondansetron HCl 2 MG / ML 2ML Vial IV PRN (22:30)
[2025-02-24] MEDS ORDERED: CefTRIAXone Sodium 1,000 MG in NS 100 ML IV SCH (22:34)
[2025-02-24 22:48] LABS: Osmolality, Serum 258.0 mos/KG (275-300)
[2025-02-24 22:58] LABS: Sodium, Blood 121.0 mmol/L (136-145); Thyroid Stimulating Hormone 2.03 uIU/mL (0.360-4.800)
[2025-02-24] MEDS ORDERED: FentaNYL Citrate 50 MCG/ML 2 ML Injection IV ONE (23:00)
[2025-02-25 02:42] VITALS: BP 144/79
[2025-02-25 04:57] VITALS: BP 156/73
[2025-02-25 06:27] LABS: Anion Gap 11.0 mmol/L (3-11); Blood Urea Nitrogen 9.0 mg/dL (8-24); CO2, Blood 24.0 mmol/L (21-32); Calcium, Blood 8.3 mg/dL (8.5-10.1); Chloride, Blood 92.0 mmol/L (98-108); Creatinine, Blood 0.54 mg/dL (0.40-1.00); Glucose, Blood 98.0 mg/dL (70-99); Potassium, Blood 3.4 mmol/L (3.5-5.5); Sodium, Blood 124.0 mmol/L (136-145)
--- NOTE | 2025-02-25 06:44 | NUR ---
SHIFT SUMMARY PATIENT ARRIVED TO 306 VIA STRETCHER. ALERT AND ORIENTED X4. MEDICATED PER EMAR FOR PAIN. DENIES SHORTNESS OF BREATH. ON ROOM AIR WITH SPO2 >90%. VITAL SIGNS STABLE. WILL CONTINUE TO MONITOR. CALL LIGHT WITHIN REACH.
[2025-02-25 07:30] VITALS: BP 166/73
[2025-02-25] MEDS ORDERED: Potassium Chloride 10 Meq Tablet SA PO ONE (08:30)
--- NOTE | 2025-02-25 09:07 | NUR ---
ASSUMPTION OF CARE: THIS RN ASSUMED CARE OF PATIENT c ORIENTING JORDYN BYRD. AWAKE DURING SHIFT CHANGE REPORT. LYING IN BED c HOB ELEVATED. BREATHING EVEN AND UNLABORED c RA. MOST RECENT TELE STRIP REVIEWED: SINUS c INTERMITTENT IRREGULAR RHYTHM c 1ST-DEGREE AV BLOCK AND PACs @ 65. BREATHING EVEN AND UNLABORED c ROOM AIR. NS @ 100mL/hr. HARD OF HEARING. NOTABLE BRUISING AND ABRASIONS T/O SHE ATTRIBUTES TO FALL ~1 WEEK AGO AT HOME. BED IN LOWEST POSITION. CALL LIGHT WITHIN REACH. ACUTE NEEDS MET.
[2025-02-25 11:38] VITALS: BP 141/59
[2025-02-25] MEDS ORDERED: Magnesium Sulf 2 GM/Water 50ML 50 ML IV SCH (15:00)
[2025-02-25 16:16] VITALS: BP 114/57
--- NOTE | 2025-02-25 17:34 | NUR ---
SHIFT SUMMARY: HS PATIENT HAS BEEN PLEASANT AND COOPERATIVE WITH CARE. PATIENT HAD BOUTS OF FORGETFULNESS LATER THIS DAY. DR. LIM NOTIFIED OF CRITICAL MAGNESIUM 1.1. MAGNESIUM ORDERED AND FIRST BAG GIVEN THIS SHIFT. NO OTHER NEW OR ACUTE CHANGES THROUGH THIS SHIFT. PLAN OF CARE ONGOING AT THIS TIME. WILL CONTINUE TO MONITOR.
--- NOTE | 2025-02-25 17:36 | NUR ---
ALL NEW MEDICATIONS AND TELEMETRY STRIPS REVIEWED BY THIS RN.
[2025-02-25 20:40] VITALS: BP 137/58
[2025-02-26 00:05] VITALS: BP 168/74
[2025-02-26 04:27] VITALS: BP 174/75
[2025-02-26 05:08] LABS: BASOPHILS ABSOLUTE AUTO 0.04 K/mm3 (0.00-0.23); BASOPHILS PERCENT AUTO 1 % (0-2); EOSINOPHILS ABSOLUTE AUTO 0.07 K/mm3 (0.00-0.68); EOSINOPHILS PERCENT AUTO 1 % (0-6); Hematocrit 33.3 % (33.0-51.0); Hemoglobin 11.4 g/dL (11.5-16.0); IMMATURE GRAN ABSOLUTE AUTO 0.02 K/mm3 (0.00-0.10); IMMATURE GRAN PERCENT AUTO 0 % (0-1); LYMPHOCYTES ABSOLUTE AUTO 1.52 K/mm3 (0.84-5.20); LYMPHOCYTES PERCENT AUTO 24 % (21-46); MONOCYTES ABSOLUTE AUTO 0.39 K/mm3 (0.16-1.47); MONOCYTES PERCENT AUTO 6 % (4-13); Mean Corpuscular HGB Conc 34.2 g/dL (31.5-36.5); Mean Corpuscular Volume 92 fL (80-100); NEUTROPHILS ABSOLUTE AUTO 4.27 K/mm3 (1.96-9.15); NEUTROPHILS PERCENT AUTO 68 % (41-73); NRBC ABSOLUTE 0.00 K/mm3 (0.00-0.02); NRBC Auto 0.0 /100 WBC (0.0-0.2); Platelet Count 213 K/mm3 (150-400); RDW Coefficient Variation 12.5 % (11.7-14.2); RDW Standard Deviation 42.2 fL (35.1-46.3)
--- NOTE | 2025-02-26 05:29 | NUR ---
SHIFT SUMMARY PT ALERT ORIENTED ABLE TO VERBALIZE NEEDS REQUIRES 1 PERSON SBA TO GET UP TO THE COMMODE REMAINS ON ROCEPHIN ORDERED FOR UTI HER BP REMAINS SLIGHT HIGH AT 174/75. SHE GOT 3 BAGS OF MG LAST NIGHT DUE TO HER MG LEVEL BEING 1.1. LABS WERE RECHECKED THIS AM. C/O GENERAL PAIN MEDICATED WITH NORCO WITH GOOD PAIN RELIEF. SHE HAS BRUISING TO HER CHEST FACE AND NECK DUE TO MULTIPLE FALLS AT HOME. SHES CONT AND INC OF URINE WEARS PULLUPS. REMAINS ON NS AT 100. REMAINS ON TELEMETRY AT NSR AT 78 WITH 1ST DEGREE BLOCK. RESTING IN BED AT THIS TIME WITH CALL LIGHT IN REACH
[2025-02-26 05:42] LABS: Alanine Aminotransfer (ALT/SGP 18.0 U/L (12-78); Albumin, Blood 3.5 g/dL (3.4-5.0); Albumin/Globulin Ratio 1.1 (0.8-1.8); Anion Gap 9.0 mmol/L (3-11); Aspartate Aminotrans (AST/SGOT 19.0 U/L (12-37); Bilirubin, Total 0.3 mg/dL (0.1-1.0); Blood Urea Nitrogen 10.0 mg/dL (8-24); CO2, Blood 24.0 mmol/L (21-32); Calcium, Blood 8.6 mg/dL (8.5-10.1); Chloride, Blood 95.0 mmol/L (98-108); Creatinine, Blood 0.51 mg/dL (0.40-1.00); Globulin, Blood 3.2 g/dL (2.2-4.0); Glucose, Blood 106.0 mg/dL (70-99); Magnesium, Blood 2.6 mg/dL (1.6-2.4); Phosphorus, Blood 3.0 mg/dL (2.5-4.9); Potassium, Blood 3.4 mmol/L (3.5-5.5); Sodium, Blood 125.0 mmol/L (136-145); Total Protein, Blood 6.7 g/dL (6.4-8.2)
[2025-02-26 07:25] VITALS: BP 149/82
[2025-02-26] MEDS ORDERED: Cosyntropin 0.25 MG / ML 1ML Vial IM ONE (08:00)
[2025-02-26] MEDS ORDERED: Formoterol/Mometasone MDI 5/200 mcg 13 GM INH SCH (08:20)
--- NOTE | 2025-02-26 09:34 | NUR ---
Call to Dr. Bhatti regarding patient HR increasing to 170's when up with physical therapy. Patient HR reduced to 105-110 after approximately 2 minutes rest. Patient was asymptomatic at the time. No new orders given.
[2025-02-26 12:26] VITALS: BP 128/57
[2025-02-26] MEDS ORDERED: PROZAC2010 PO (13:06)
[2025-02-26] MEDS ORDERED: HYDROCODONE-AC1 EA19 PO (13:06)
[2025-02-26] MEDS ORDERED: Potassium Chloride 10 Meq Tablet SA PO ONE (14:30)
[2025-02-26 16:19] VITALS: BP 147/65
--- NOTE | 2025-02-26 17:15 | NUR ---
End of shift summary: Patient is alert and oriented to self and place, forgetful and repeats questions and phrases. Patient denies CP, SOB, N/V/D, or pain this shift. Patient up with physical therapy today and HR 170's when up OOB, decreased to 100-110, Dr. Bhatti notified. All medications administered per EMAR. Patient utilizing call light appropriately; call light within reach, bed in lowest position, bed alarm on for safety. Will continue to monitor until next shift nurse arrives and report is given.
[2025-02-26 19:35] VITALS: BP 159/75
[2025-02-27 00:39] VITALS: BP 143/59
[2025-02-27 05:09] VITALS: BP 139/67
[2025-02-27 05:10] LABS: BASOPHILS ABSOLUTE AUTO 0.03 K/mm3 (0.00-0.23); BASOPHILS PERCENT AUTO 1 % (0-2); EOSINOPHILS ABSOLUTE AUTO 0.07 K/mm3 (0.00-0.68); EOSINOPHILS PERCENT AUTO 2 % (0-6); Hematocrit 29.2 % (33.0-51.0); Hemoglobin 10.1 g/dL (11.5-16.0); IMMATURE GRAN ABSOLUTE AUTO 0.02 K/mm3 (0.00-0.10); IMMATURE GRAN PERCENT AUTO 0 % (0-1); LYMPHOCYTES ABSOLUTE AUTO 1.57 K/mm3 (0.84-5.20); LYMPHOCYTES PERCENT AUTO 35 % (21-46); MONOCYTES ABSOLUTE AUTO 0.30 K/mm3 (0.16-1.47); MONOCYTES PERCENT AUTO 7 % (4-13); Mean Corpuscular HGB Conc 34.6 g/dL (31.5-36.5); Mean Corpuscular Volume 92 fL (80-100); NEUTROPHILS ABSOLUTE AUTO 2.53 K/mm3 (1.96-9.15); NEUTROPHILS PERCENT AUTO 56 % (41-73); NRBC ABSOLUTE 0.00 K/mm3 (0.00-0.02); NRBC Auto 0.0 /100 WBC (0.0-0.2); Platelet Count 208 K/mm3 (150-400); RDW Coefficient Variation 12.7 % (11.7-14.2); RDW Standard Deviation 43.4 fL (35.1-46.3)
--- NOTE | 2025-02-27 05:31 | NUR ---
SHIFT SUMMARY: PATIENT IS A&OX2 TO SELF AND PLACE, SHE IS FORGETFUL/REPEATS QUESTIONS BUT IS EASILY REORIENTED WELL [place]. PER BEHAVIOR THERAPIST PATIENTS TELE SHOWS SINUS RHYTHM @ 64BPM WITH 1ST DEGREE BLOCK. PATIENT REPORTED EARLIER IN THE SHIFT SAYING "I FEEL LIKE I'M NOT EMPTYING ALL THE WAY WHEN I USE THE BSC". THIS NURSE BLADDER SCANNED 589ML, AND THEN STRAIGHT CATHED PER PROTOCOL WITH 500ML OUTPUT AROUND 0115 THIS MORNING. PATIENT STATED POST STRAIGHT CATH "I USUALLY STRAIGHT CATH MYSELF X3 A DAY AT HOME". WILL PASS ALONG THIS INFORMATION TO THE DAYSHIFT RN TO NOTIFY MD THIS MORNING. PATIENT CALLS APPROPRIATELY WITH CALL LIGHT IN REACH AND BED ALARM ON A PRECAUTION. 1P WITH FWW AND GAIT BELT TO THE BSC. PATIENT REPOSITIONS HERSELF IN BED THROUGHOUT SHIFT.
[2025-02-27 05:39] LABS: Anion Gap 10.0 mmol/L (3-11); Blood Urea Nitrogen 16.0 mg/dL (8-24); CO2, Blood 24.0 mmol/L (21-32); Calcium, Blood 8.3 mg/dL (8.5-10.1); Chloride, Blood 100.0 mmol/L (98-108); Creatinine, Blood 0.57 mg/dL (0.40-1.00); Glucose, Blood 90.0 mg/dL (70-99); Potassium, Blood 3.6 mmol/L (3.5-5.5); Sodium, Blood 130.0 mmol/L (136-145)
[2025-02-27 07:45] VITALS: BP 175/76
--- NOTE | 2025-02-27 17:06 | NUR ---
End of shift summary: Patient is alert and oriented x3 with some forgetfulness noted. Patient with no acute changes this shift. All medications administered per EMAR. Patient denies CP/pressure, SOB, N/V/D, but did have complaint of body pain this morning. Patient utilizing call light appropriately; call light within reach, bed in lowest position and bed alarm on for safety. Will continue to monitor until next shift nurse arrives and report given.
[2025-02-27 21:41] VITALS: BP 170/60
[2025-02-28 00:51] VITALS: BP 124/73
[2025-02-28 04:18] VITALS: BP 181/83
[2025-02-28 05:28] LABS: BASOPHILS ABSOLUTE AUTO 0.03 K/mm3 (0.00-0.23); BASOPHILS PERCENT AUTO 1 % (0-2); EOSINOPHILS ABSOLUTE AUTO 0.08 K/mm3 (0.00-0.68); EOSINOPHILS PERCENT AUTO 2 % (0-6); Hematocrit 31.8 % (33.0-51.0); Hemoglobin 10.9 g/dL (11.5-16.0); IMMATURE GRAN ABSOLUTE AUTO 0.02 K/mm3 (0.00-0.10); IMMATURE GRAN PERCENT AUTO 0 % (0-1); LYMPHOCYTES ABSOLUTE AUTO 1.84 K/mm3 (0.84-5.20); LYMPHOCYTES PERCENT AUTO 35 % (21-46); MONOCYTES ABSOLUTE AUTO 0.33 K/mm3 (0.16-1.47); MONOCYTES PERCENT AUTO 6 % (4-13); Mean Corpuscular HGB Conc 34.3 g/dL (31.5-36.5); Mean Corpuscular Volume 93 fL (80-100); NEUTROPHILS ABSOLUTE AUTO 3.00 K/mm3 (1.96-9.15); NEUTROPHILS PERCENT AUTO 57 % (41-73); NRBC ABSOLUTE 0.00 K/mm3 (0.00-0.02); NRBC Auto 0.0 /100 WBC (0.0-0.2); Platelet Count 225 K/mm3 (150-400); RDW Coefficient Variation 12.7 % (11.7-14.2); RDW Standard Deviation 43.5 fL (35.1-46.3)
[2025-02-28 05:41] VITALS: BP 177/81
[2025-02-28 05:49] VITALS: BP 168/87
[2025-02-28 05:58] LABS: Alanine Aminotransfer (ALT/SGP 22.0 U/L (12-78); Albumin, Blood 3.5 g/dL (3.4-5.0); Albumin/Globulin Ratio 1.1 (0.8-1.8); Anion Gap 10.0 mmol/L (3-11); Aspartate Aminotrans (AST/SGOT 21.0 U/L (12-37); Bilirubin, Total 0.4 mg/dL (0.1-1.0); Blood Urea Nitrogen 12.0 mg/dL (8-24); CO2, Blood 23.0 mmol/L (21-32); Calcium, Blood 8.6 mg/dL (8.5-10.1); Chloride, Blood 98.0 mmol/L (98-108); Creatinine, Blood 0.48 mg/dL (0.40-1.00); Globulin, Blood 3.2 g/dL (2.2-4.0); Glucose, Blood 89.0 mg/dL (70-99); Potassium, Blood 3.9 mmol/L (3.5-5.5); Sodium, Blood 127.0 mmol/L (136-145); Total Protein, Blood 6.7 g/dL (6.4-8.2)
--- NOTE | 2025-02-28 07:19 | NUR ---
SHIFT SUMMARY PT A/Ox3, DISORIENTED TO SITUATION, FORGETFUL AT TIMES. ELEVATED SBP, OTHER VSS ON RA. PRN HYDRALAZINE GIVEN X 2. PT UP TO COMMODE WITH SBA AND FWW. PT VOIDED X 4, 1 BM THIS SHIFT. ONE STRAIGHT CATH ATTEMPTED UNSUCCESSFULLY. PT DID NOT APPEAR TO SLEEP MUCH OVERNIGHT; PT STATES SHE EXPERIENCES SIMILAR NIGHTS AT HOME. SAFETY PRECAUTIONS IN PLACE, CALL LIGHT IN REACH.
[2025-02-28 07:21] VITALS: BP 150/63
[2025-02-28] MEDS ORDERED: BACTRIM 400-801 EACH PO (08:30)
[2025-02-28] MEDS ORDERED: SODCHL1 PO (08:31)
[2025-02-28] MEDS ORDERED: VISBIOME 112.51 EACH PO (08:31)
[2025-02-28] MEDS ORDERED: SULTRIDS PO (12:20)
--- NOTE | 2025-02-28 14:00 | NUR ---
DISCHARGE NOTE: A&OX4 THROUGHOUT SHIFT, BUT FORGETFUL. PT SON IN TO PICK PT UP FOR D/C. DISCHARGE EDUCATION AND INSTRUCTIONS PROVIDED TO PT AND LEFT WITH PACKET. IV AND TELE REMOVED PRIOR TO LEAVING. PT ESCORTED OUT BY SON VIA W/C.
[2025-03-02 22:59] LABS: CORTISOL, FREE BY ED/LC-MS/MS 1.09 ug/dL
== END 2025-02-28 14:05 | disposition home health service (06) | DRG 644 ==
LOC: ER 16:36 → ERHOLD 22:25 → MEDS 22:25 → ENPENDDIS 02-28 12:02 → MEDS 02-28 14:05
PROVIDERS: Family Medicine; Nurse Practitioner Acute Care; Student in an Organized Health Care Education/Training Program; ADMIT Student in an Organized Health Care Education/Training Program
DX: E22.2 Syndrome of inappropriate secretion of antidiuretic hormone (principal); N39.0 Urinary tract infection, site not specified; I16.0 Hypertensive urgency; E87.6 Hypokalemia; I10 Essential (primary) hypertension; K21.9 Gastro-esophageal reflux disease without esophagitis; E78.5 Hyperlipidemia, unspecified; M79.7 Fibromyalgia; M19.90 Unspecified osteoarthritis, unspecified site; B96.20 Unspecified Escherichia coli [E. coli] as the cause of diseases classified elsewhere; R33.8 Other retention of urine; Z90.49 Acquired absence of other specified parts of digestive tract; Z90.710 Acquired absence of both cervix and uterus; Z98.891 History of uterine scar from previous surgery; Z96.652 Presence of left artificial knee joint; Z87.891 Personal history of nicotine dependence; Z88.8 Allergy status to other drugs, medicaments and biological substances; Z79.899 Other long term (current) drug therapy; W18.30XA Fall on same level, unspecified, initial encounter
CPT/HCPCS: 36415; 70450; 71260; 80048; 80053; 80400; 81001; 82530; 82533; 83735; 83930; 83935; 84100; 84295; 84300; 84443; 84484; 85025; 87077; 87086; 87186; 93005; 93010; 94640; 94664; 94760; 96361-59; 96374-59; 97110; 97161; 97530; 99285-25; A9270; J0696; J0834; J3010; J3360; J3475; J7030; Q9967

== ENCOUNTER 2025-03-04 11:21 | Emergency (ER) | payer MEDICARE ==
[~2025-03-04] VITALS: Ht 165.1 cm; Wt 60.8 kg
[~2025-03-04 11:21] MED LIST changes: +BACTRIM 400-801 EACH PO; +HYDROCODONE-AC1 EA19 PO; +PROZAC2010 PO; +SULTRIDS PO; +VISBIOME 112.51 EACH PO
[2025-03-04 12:52] LABS: BASOPHILS ABSOLUTE AUTO 0.05 K/mm3 (0.00-0.23); BASOPHILS PERCENT AUTO 1 % (0-2); EOSINOPHILS ABSOLUTE AUTO 0.07 K/mm3 (0.00-0.68); EOSINOPHILS PERCENT AUTO 1 % (0-6); Hematocrit 32.9 % (33.0-51.0); Hemoglobin 11.3 g/dL (11.5-16.0); IMMATURE GRAN ABSOLUTE AUTO 0.02 K/mm3 (0.00-0.10); IMMATURE GRAN PERCENT AUTO 0 % (0-1); LYMPHOCYTES ABSOLUTE AUTO 1.33 K/mm3 (0.84-5.20); LYMPHOCYTES PERCENT AUTO 23 % (21-46); MONOCYTES ABSOLUTE AUTO 0.38 K/mm3 (0.16-1.47); MONOCYTES PERCENT AUTO 7 % (4-13); Mean Corpuscular HGB Conc 34.3 g/dL (31.5-36.5); Mean Corpuscular Volume 95 fL (80-100); NEUTROPHILS ABSOLUTE AUTO 3.88 K/mm3 (1.96-9.15); NEUTROPHILS PERCENT AUTO 68 % (41-73); NRBC ABSOLUTE 0.00 K/mm3 (0.00-0.02); NRBC Auto 0.0 /100 WBC (0.0-0.2); Platelet Count 231 K/mm3 (150-400); RDW Coefficient Variation 12.8 % (11.7-14.2); RDW Standard Deviation 44.4 fL (35.1-46.3)
[2025-03-04 13:30] VITALS: BP 179/91
[2025-03-04 13:37] LABS: Alanine Aminotransfer (ALT/SGP 35.0 U/L (12-78); Albumin, Blood 3.5 g/dL (3.4-5.0); Albumin/Globulin Ratio 1.1 (0.8-1.8); Anion Gap 9.0 mmol/L (3-11); Aspartate Aminotrans (AST/SGOT 29.0 U/L (12-37); Bilirubin, Total 0.5 mg/dL (0.1-1.0); Blood Urea Nitrogen 11.0 mg/dL (8-24); CO2, Blood 25.0 mmol/L (21-32); Calcium, Blood 8.4 mg/dL (8.5-10.1); Chloride, Blood 94.0 mmol/L (98-108); Creatinine, Blood 0.56 mg/dL (0.40-1.00); Globulin, Blood 3.3 g/dL (2.2-4.0); Glucose, Blood 92.0 mg/dL (70-99); Magnesium, Blood 1.4 mg/dL (1.6-2.4); Potassium, Blood 4.6 mmol/L (3.5-5.5); Sodium, Blood 123.0 mmol/L (136-145); Total Protein, Blood 6.8 g/dL (6.4-8.2)
[2025-03-04 13:40] LABS: Source, Urine Clean Catch
[2025-03-04 13:49] LABS: Bilirubin, Urine Neg (Neg); Color, Urine Yellow (P-Yellow); Glucose Qualitative, Urine Neg (Neg); Ketones, Urine Neg (Neg); Leukocyte Esterase, Urine Neg (Neg); Protein, Urine Neg (Neg); Specific Gravity, Urine 1.010 (1.003-1.022); Urobilinogen, Urine NORM (Normal)
== END 2025-03-04 14:53 | disposition home or self-care (01) ==
LOC: ER 11:21
PROVIDERS: Emergency Medicine
DX: E87.1 Hypo-osmolality and hyponatremia (principal); E87.8 Other disorders of electrolyte and fluid balance, not elsewhere classified; I10 Essential (primary) hypertension; K21.9 Gastro-esophageal reflux disease without esophagitis; E78.5 Hyperlipidemia, unspecified; Z87.891 Personal history of nicotine dependence; Z88.8 Allergy status to other drugs, medicaments and biological substances; Z79.899 Other long term (current) drug therapy
CPT/HCPCS: 51701; 80053; 81003; 83735; 83930; 85025; 93005; 93010; 99285-25